=== PATIENT | male | born 1945 | race Hispanic/Latino ===

== ENCOUNTER → 2023-05-06 | Outpatient (CLI) | payer OTHER ==
[2023-05-06 11:11] LABS: CREATININE 1.1 mg/dL (0.5-1.5)
== END | disposition home or self-care (01) ==
LOC: LAB 10:13
PROVIDERS: ATTEND Student in an Organized Health Care Education/Training Program
DX: R10.9 Unspecified abdominal pain (principal)
CPT/HCPCS: 36415; 82565; 84520

== ENCOUNTER → 2023-05-19 | Outpatient (CLI) | payer OTHER ==
[~2023-05-19] MED LIST: IOHEXOL-350 75 ML VIAL IV ONE
== END | disposition home or self-care (01) ==
LOC: RAH 07:43
PROVIDERS: ATTEND Student in an Organized Health Care Education/Training Program
DX: K43.9 Ventral hernia without obstruction or gangrene (principal); R10.9 Unspecified abdominal pain; K57.30 Diverticulosis of large intestine without perforation or abscess without bleeding; K80.20 Calculus of gallbladder without cholecystitis without obstruction
CPT/HCPCS: 74177; Q9967

== ENCOUNTER 2024-10-07 10:10 | Inpatient (IN) | payer OTHER ==
[~2024-10-07] VITALS: Ht 167.6 cm; Wt 82.7 kg
[2024-10-07 10:35] LABS: BASOPHILS # (AUTO) 0.06 K/uL (0.00-0.20); BASOPHILS % (AUTO) 0.5 % (0.0-5.0); EOSINOPHILS # (AUTO) 0.11 K/uL (0.00-0.70); EOSINOPHILS % (AUTO) 0.9 % (0.0-8.0); IMMATURE GRANULOCYTE ABSOLUTE 0.05 K/uL (0-1); LYMPHOCYTES # (AUTO) 2.2 K/uL (1.0-4.8); LYMPHOCYTES % (AUTO) 17.1 % (21.0-51.0); MEAN CORPUSCULAR HEMOGLOBIN 31.5 pg (27.0-33.0); MEAN CORPUSCULAR HGB CONC 33.3 g/dL (32.0-36.0); MEAN CORPUSCULAR VOLUME 94.4 fL (79-99); MONOCYTES # (AUTO) 0.6 K/uL (0.1-1.0); MONOCYTES % (AUTO) 4.7 % (3.0-13.0); NEUTROPHILS # (AUTO) 9.8 K/uL (1.8-7.7); NEUTROPHILS % (AUTO) 76.4 % (40.0-77.0); PLATELET COUNT (AUTO) 185 K/uL (130-400); RED BLOOD CELL COUNT(AUTO) 4.45 MIL/uL (4.50-6.20); RED CELL DISTRIBUTION WIDTH 13.7 % (11.0-15.5); WHITE BLOOD COUNT (AUTO) 12.9 K/uL (4.8-10.8)
[2024-10-07 10:48] LABS: CREATININE 1.4 mg/dL (0.5-1.3); POTASSIUM 5.1 mmol/L (3.5-5.1)
[2024-10-07] MEDS: morPHINE 4 MG SYG IVP ONE (11:43)
[2024-10-07] MEDS: ondanSETRON 4MG INJ IVP ONE (11:43)
[2024-10-07 11:49] LABS: APPEARANCE,URINE CLOUDY (CLEAR); BILIRUBIN,URINE NEGATIVE (NEGATIVE); COLOR,URINE LIGHT-YELLOW (YELLOW); GLUCOSE, URINE (UA) >=1000 mg/dL (NEGATIVE); KETONES,URINE NEGATIVE (NEGATIVE); LEUKOCYTE ESTERASE ,URINE 250 Leu/uL (NEGATIVE); NITRATE,URINE NEGATIVE (NEGATIVE); PH,URINE 5.5 (5.0-8.0); PROTEIN,URINE 70 mg/dL (NEGATIVE); UROBILINOGEN,URINE 0.2 mg/dL (0.2-1.0)
[2024-10-07 11:50] LABS: ADD UA MICROSCOPIC YES
[2024-10-07 12:02] LABS: BACTERIA,URINE MANY /HPF (None Seen); MUCUS,URINE RARE LPF (None Seen); SQUAMOUS EPITHELIAL CELL,UR RARE /HPF (0-2); WBC,URINE TNTC /HPF (0-1)
[2024-10-07] MEDS ORDERED: levoFLOXacin 500 MG/D5W 100 ML 100 ML IV SCH (12:30)
--- NOTE | 2024-10-07 12:41 | ERN ---
General Chief Complaint: Abdominal Pain Stated Complaint: ABD PAIN, VOMITING, DISTENDED HERNIA Time Seen by MD: 10:13 Source: patient History of Present Illness Initial Comments PATIENT IS A AN 78-YEAR-OLD MALE COMING IN TO BE EVALUATED FOR ABDOMINAL PAIN NAUSEOUSNESS AND VOMITING. PATIENT STATES THAT HE WAS NOT ABLE TO TOLERATING ORAL INTAKE. 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 HE WAS PENDING SURGICAL PROCEDURE AT THE MOMENT IT WAS POSTPONED WITH THE PATIENT'S WEIGHT. Allergies: Coded Allergies: Penicillins (Unverified Allergy, Unknown, 10/07/24) Past Medical History Past Medical History: Arrythmia, Coagulopathy Past Surgical History: Pacer/AICD ROS Dictation CONSTITUTIONAL: NO CHILLS, NO FEVER, NO WEAKNESS, NO DIAPHORESIS, NO MALAISE. HEAD/FACE: NO SIGNS OF TRAUMA. EENT: NO EYE PAIN, NO BLURRED VISION, NO TEARING, NO DOUBLE VISION, NO EAR PAIN, NO EAR DISCHARGE, NO NOSE PAIN, NO NASAL CONGESTION, NO THROAT PAIN, NO THROAT SWELLING, NO MOUTH PAIN. RESPIRATORY: NO COUGH, NO ORTHOPNEA, NO SOB, NO STRIDOR, NO WHEEZING. CARDIOVASCULAR: NO CHEST PAIN, NO EDEMA, NO PALPITATIONS, NO SYNCOPE. GASTROINTESTINAL/ABDOMINAL: ABDOMINAL PAIN, NO CONSTIPATION, NO DIARRHEA, NO NAUSEA, NO VOMITING. GENITOURINARY: NO ABNORMAL DISCHARGE, NO DYSURIA, NO FREQUENT URINATION, NO HEMATURIA. NO COMPLAINTS OF PAIN IN THE GENITALS. MUSCULOSKELETAL: NO BACK PAIN, NO GOUT, NO JOINT PAIN, NO JOINT SWELLING, NO MUSCLE PAIN, NO MUSCLE STIFFNESS, NO NECK PAIN. INTEGUMENTARY: NO CHANGE IN COLOR, NO CHANGE IN HAIR/NAILS, NO DRYNESS, NO LESION, NO LUMPS, NO RASH. NEUROLOGICAL/PSYCH: NO ANXIETY, NOT DEPRESSED, NO EMOTIONAL PROBLEM, NO HEADACHE, NO NUMBNESS, NO PRE-EXISTING DEFICIT, NO HISTORY OF SEIZURES, NO TREMORS, NO WEAKNESS. HEMATOLOGIC/LYMPHATIC: NOT ANEMIC, NO HISTORY OF BLOOD CLOTS, NO APPARENT BLEEDING, NO BRUISING, GLANDS NOT SWOLLEN. ALL SYSTEMS NEGATIVE, EXCEPT NOTED. Physical Exam Physical Exam Dictation VITAL SIGNS: REVIEWED. GENERAL APPEARANCE: ALERT, ORIENTED X3, NO ACUTE DISTRESS, OBESE. HEAD AND FACE: NON-TRAUMATIC. EYES: PERRL, PINK CONJUNCTIVAS, EYELID NO TRAUMA, ANTERIOR CHAMBER CLEAR. EARS: PINNAS INTACT AND NO SIGNS OF TRAUMA OR ERYTHEMA. EAR CANALS CLEAR AND NO DISCHARGE. TMS NO ERYTHEMA. NOSE: NO DISCHARGE, NO BLEEDING. OROPHARYNX: MOUTH NORMAL, TEETH NO CARIES, TONGUE PINK. PHARYNX CLEAR, NO ERYTHEMA. TONSILS NO EXUDATES, NO ABSCESSES NOTED. MUCOUS MEMBRANE MOIST. NECK: SUPPLE, NON-TENDER, NO THYROMEGALY, NO MASSES, NO JVD, NO BRUITS. BREAST: DEFERRED. CHEST: NO TENDERNESS, NO CREPITUS, NO PARADOXICAL MOVEMENT, NO RETRACTIONS. LUNGS: CLEAR, WELL-VENTILATED, SYMMETRIC, NO RALES, NO WHEEZING, NO RHONCHI, NO STRIDOR, GOOD BREATH SOUNDS BILATERALLY. HEART: REGULAR RATE, REGULAR RHYTHM, NO MURMUR, NO GALLOPS. VASCULAR: NO PERIPHERAL EDEMA. ABDOMEN: SOFT, POSITIVE BOWEL SOUNDS, DISTENDED, VENTRAL HERNIA, NO GUARDING, TENDER, NO REBOUND, NO MASSES NO HEPATOMEGALY, NO SPLENOMEGALY, NO NESS'S SIGN, NO HERNIAS. RECTAL: DEFERRED. GENITAL: DEFERRED. NEUROLOGICAL: NORMAL SPEECH, GROSS MOTOR FUNCTION INTACT, GROSS SENSORY FUNCTION INTACT. MUSCULOSKELETAL: NECK NONTENDER, FULL RANGE OF MOTION, BACK NONTENDER, FULL RANGE OF MOTION. EXTREMITIES: NONTENDER, FULL RANGE OF MOTION. SKIN: COLOR PINK, DRY, NO TURGOR, NO RASH, NO LACERATIONS, NO ABRASIONS, NO CONTUSIONS. LYMPHATICS: DEFERRED. Results Laboratory and Microbiology Lab and Micro Result Laboratory Tests Test 10/07/24 10:24 10/07/24 11:17 White Blood Count 12.9 K/uL (4.8-10.8) H Red Blood Count 4.45 MIL/uL (4.50-6.20) L Hemoglobin 14.0 g/dL (14.0-18.0) Hematocrit 42.0 % (42-54) Mean Corpuscular Volume 94.4 fL (79-99) Mean Corpuscular Hemoglobin 31.5 pg (27.0-33.0) Mean Corpuscular Hemoglobin Concent 33.3 g/dL (32.0-36.0) Red Cell Distribution Width 13.7 % (11.0-15.5) Platelet Count 185 K/uL (130-400) Mean Platelet Volume 10.3 fL (7.5-10.5) Immature Granulocyte % (Auto) 0.4 % (0-1) Neutrophils (%) (Auto) 76.4 % (40.0-77.0) Lymphocytes (%) (Auto) 17.1 % (21.0-51.0) L Monocytes (%) (Auto) 4.7 % (3.0-13.0) Eosinophils (%) (Auto) 0.9 % (0.0-8.0) Basophils (%) (Auto) 0.5 % (0.0-5.0) Neutrophils # (Auto) 9.8 K/uL (1.8-7.7) H Lymphocytes # (Auto) 2.2 K/uL (1.0-4.8) Monocytes # (Auto) 0.6 K/uL (0.1-1.0) Eosinophils # (Auto) 0.11 K/uL (0.00-0.70) Basophils # (Auto) 0.06 K/uL (0.00-0.20) Absolute Immature Granulocyte (auto 0.05 K/uL (0-1) Nucleated Red Blood Cells 0.0 % (0.0-0.19) Sodium Level 130 mmol/L (136-145) L Potassium Level 5.1 mmol/L (3.5-5.1) Chloride Level 100 mmol/L (101-111) L Carbon Dioxide Level 22 mmol/L (21-32) Blood Urea Nitrogen 33 mg/dL (7-18) H Creatinine 1.4 mg/dL (0.5-1.3) H Glomerular Filtration Rate Calc 51 mL/min (>90) Random Glucose 337 mg/dL (70-105) H Total Calcium 10.5 mg/dL (8.5-10.1) H Urine Color LIGHT-YELLOW (YELLOW) Urine Appearance CLOUDY (CLEAR) H Urine pH 5.5 (5.0-8.0) Urine Specific [place] 1.017 (1.001-1.031) Urine Protein 70 mg/dL (NEGATIVE) H Urine Glucose (UA) >=1000 mg/dL (NEGATIVE) H Urine Ketones NEGATIVE mg/dL (NEGATIVE) Urine Occult Blood +- (TRACE) (NEGATIVE) H Urine Nitrate NEGATIVE (NEGATIVE) Urine Bilirubin NEGATIVE mg/dL (NEGATIVE) Urine Urobilinogen 0.2 mg/dL (0.2-1.0) Urine Leukocyte Esterase 250 Lacy/uL (NEGATIVE) H Urine RBC 6-10 /HPF (0-1) H Urine WBC TNTC /HPF (0-1) H Urine Squamous Epithelial Cells RARE /HPF (0-2) Urine Bacteria MANY /HPF (None Seen) Labs Reviewed?: Yes EKG/XRAY/US/CT/MRI EKG Comment 10/07/2024 time 10:22 a.m. Ventricular rate [address] wave elevation or depression [place] 206 CT Scan Comment [address] [place] [address] IMAGING REPORT Signed PATIENT: RAISSA NAVA MR#: [id number] : 1945 SEX: M AGE: 78 LOCATION: [facility] ORDER [id number] STATUS: REG REPORT#: [id number] SERVICE [id number] REASON: HERNIA ORDERING PHYSICIAN: MARLYS CHRISTOPHER MD PROCEDURE: ABD PEL W - CT ABDOMEN/PELVIS W/CONTRAST CT ABDOMEN/PELVIS W/CONTRAST HISTORY: Hernia COMPARISON: None TECHNIQUE: Multiple sequential axial images of the abdomen and pelvis were obtained from the dome of the diaphragm through symphysis pubis. Patient was not given contrast through intravenous route. Oral contrast was not given. FINDINGS: No pleural effusion is seen bilaterally. There is no evidence of parenchymal disease or pulmonary nodule of the visualized lower lungs. Degenerative changes of the thoracolumbar spine are present. The heart is not enlarged. Gallstones are seen in the gallbladder. There is small bowel dilatation with air fluid level with transitional point at the level of the ventral hernia with bowel content suspicious for bowel obstruction. There is diverticulosis. The liver, spleen, adrenal glands and pancreas are unremarkable. There is no evidence of hydronephrosis bilaterally. No evidence of renal stone is seen. There are bilateral renal cortical scarring. Fecal material is seen in the colon. There are normal size retroperitoneal and mesenteric lymph nodes. No ascites is seen. No CT evidence of acute appendicitis is seen. Pelvic sidewalls are symmetric bilaterally. Bladder is well distended without wall thickening. IMPRESSION: 1. Gallstones are seen in the gallbladder. There is small bowel dilatation with air fluid level with transitional point at the level of the ventral hernia with bowel content suspicious for bowel obstruction. There is diverticulosis. CT was performed with one or more following dose reduction techniques: automated exposure control, adjustment of the mA and kv according to patient's size, or use of a iterative reconstruction technique. DICTATED BY: FIFI BERNABE MD DATE: 10/07/241405 ELECTRONICALLY SIGNED BY: FIFI BERNABE MD DATE: 10/07/[address] [facility] MDM: DIFFERENTIAL DIAGNOSIS: VENTRAL HERNIA, ABDOMINAL HERNIA, SMALL-BOWEL OBSTRUCTION, RATIONALE: TESTS CONSIDERED AND ORDERED SECONDARY TO SHARED DECISION MAKING INCLUDE: PREVIOUS OUTSIDE RECORDS REVIEWED: OLD ER VISITS. RISK OF COMPLICATION AND/OR MORBIDITY OR MORTALITY OF PATIENT MANAGEMENT: NONE MEDICATIONS-PER MEDICATION RECONCILIATION NEED FOR HOSPITALIZATION: PATIENT DOES MEET CRITERIA FOR HOSPITALIZATION. NEED FOR EMERGENCY MAJOR/MINOR SURGERY: YES THERE ARE NO SOCIAL CONCERNS WITH THIS PATIENT. PRESCRIPTION DRUG MANAGEMENT PRESCRIPTIONS WILL INCLUDE SYMPTOMATIC CARE PATIENT'S PRIOR EXTERNAL MEDICAL RECORDS FROM OTHER ER VISITS WERE REVIEWED BY ME INDICATED. PRIOR TESTING AND RESULTS FROM PREVIOUS VISITS WERE REVIEWED. PRIOR TESTS WERE TAKEN INTO ACCOUNT WITH MEDICAL DECISION MAKING AND RESOURCE UTILIZATION, INDEPENDENT HISTORIAN/HISTORIANS WERE USED TO OBTAIN COMPLETE MEDICAL HISTORY. I INDEPENDENTLY INTERPRETED THE TEST THAT WERE PERFORMED, RESULTS WERE REVIEWED BY ME AND CONSIDERED FINDINGS ON RADIOLOGY IF ORDERED. MEDICAL MANAGEMENT AND EXAMINATION INTERPRETATION DISCUSSIONS WERE HAD BY ME WITH OTHER QUALIFIED HEALTHCARE PROFESSIONALS INDICATED FOR THE PATIENT'S CARE. PATIENT WILL BE ADMITTED UNDER THE CARE OF HOSPITALIST GROUP FOR ONGOING MANAGEMENT. SURGEON DR. DE LA ROSA CONSULTED. ED Course Orders Procedure Category Date Status Time Cbc With Differential LAB 10/07/24 Complete 10:21 Basic Metabolic Panel LAB 10/07/24 Complete 10:21 Urinalysis Profile LAB 10/07/24 Complete 10:21 Morphine 4mg Syg PHA 10/07/24 Complete (Morphine 4mg Syg) 11:30 Ondansetron 4mg Inj PHA 10/07/24 Complete (Zofran 4mg Inj) 11:30 Culture Urine DEMETRIA 10/07/24 In Process 11:51 Levofloxacin 500 PHA 10/07/24 Complete Mg/D5w 100 Ml 12:30 Levofloxacin 500 PHA 10/07/24 Complete Mg/D5w 100 Ml 12:30 Levofloxacin 250 PHA 10/08/24 In Process Mg/D5w 50ml (Levaquin 12:30 Ct Abdomen/Pelvis CT 10/07/24 Resulted W/Contrast 12:38 Iohexol (Omnipaque) PHA 10/07/24 Complete 13:37 Current Medications Medications (Trade) Dose Ordered Sig/Riaz Route PRN Reason Start Time Stop Time Status Last Admin Dose Admin Iohexol (Omnipaque) 75 ml STK-MED ONCE IV 10/07/24 13:37 10/07/24 13:37 DC Levofloxacin/ Dextrose 50 ml @ 50 mls/hr Q24H IVPB 10/08/24 12:30 10/18/24 12:29 Levofloxacin/ Dextrose 100 ml @ 100 mls/hr ONCE ONCE IV 10/07/24 12:30 10/07/24 13:29 DC 10/07/24 14:04 Levofloxacin/ Dextrose 100 ml @ 100 mls/hr Q24H IV 10/07/24 12:30 10/07/24 12:24 DC Morphine Sulfate (morPHINE 4MG SYG) 4 mg ONCE ONCE IVP 10/07/24 11:30 10/07/24 11:32 DC 10/07/24 11:43 Ondansetron HCl (zoFRAN 4MG INJ) 4 mg ONCE ONCE IVP 10/07/24 11:30 10/07/24 11:32 DC 10/07/24 11:43 Vital Signs Date Time Temp Pulse Resp B/P (MAP) Pulse Ox O2 Delivery O2 Flow Rate FiO2 10/07/24 14:17 97.9 67 16 146/54 98 Room Air* 0 21 10/07/24 11:56 97.9 65 16 176/74 95 Room Air* 0 21 10/07/24 10:13 97.9 95 16 184/99 Room Air 0 10/07/24 10:13 97.9 95 16 184/99 96 Room Air* 0 21 Procedure Dictation VENTRAL HERNIA REDUCTION- IN THE TRENDELENBURG POSITION AFTER ICING THE HERNIA, VENTRAL HERNIA WAS GENTLY REDUCED PATIENT TOLERATED PROCEDURE WELL. POST REDUCTION PATIENT STATES HIS PAIN IMPROVED. DX & DISP Disposition: Inpatient Decision to Admit Time: 14:56 Departure Impression: Primary Impression: Abdominal hernia Additional Impression: Small bowel obstruction Condition: Stable Referrals: WINNIE VIRK (PCP) MARLYS CHRISTOPHER MD October 07, 2024 12:41
--- NOTE | 2024-10-07 13:00 | NUR ---
ABDOMINAL HERNIA REDUCED BY DR CHRISTOPHER.ABDOMINAL HERNIA APPLIED. PT FEELS RELIEVED.
[2024-10-07] MEDS ORDERED: IOHEXOL-350 75 ML VIAL IV ONE (13:37)
[2024-10-07] MEDS: levoFLOXacin 500 MG/D5W 100 ML 100 ML IV ONE (14:04)
--- NOTE | 2024-10-07 14:10 | HMCIMG ---
CT ABDOMEN/PELVIS W/CONTRAST HISTORY: Hernia COMPARISON: None TECHNIQUE: Multiple sequential axial images of the abdomen and pelvis were obtained from the dome of the diaphragm through symphysis pubis. Patient was not given contrast through intravenous route. Oral contrast was not given. FINDINGS: No pleural effusion is seen bilaterally. There is no evidence of parenchymal disease or pulmonary nodule of the visualized lower lungs. Degenerative changes of the thoracolumbar spine are present. The heart is not enlarged. Gallstones are seen in the gallbladder. There is small bowel dilatation with air fluid level with transitional point at the level of the ventral hernia with bowel content suspicious for bowel obstruction. There is diverticulosis. The liver, spleen, adrenal glands and pancreas are unremarkable. There is no evidence of hydronephrosis bilaterally. No evidence of renal stone is seen. There are bilateral renal cortical scarring. Fecal material is seen in the colon. There are normal size retroperitoneal and mesenteric lymph nodes. No ascites is seen. No CT evidence of acute appendicitis is seen. Pelvic sidewalls are symmetric bilaterally. Bladder is well distended without wall thickening. IMPRESSION: 1. Gallstones are seen in the gallbladder. There is small bowel dilatation with air fluid level with transitional point at the level of the ventral hernia with bowel content suspicious for bowel obstruction. There is diverticulosis. CT was performed with one or more following dose reduction techniques: automated exposure control, adjustment of the mA and kv according to patient's size, or use of a iterative reconstruction technique.
[2024-10-07] MEDS ORDERED: DEXTROSE 50%-WATER 50 ML DISP.SYRIN IV PRN (15:30)
[2024-10-07] MEDS ORDERED: GLUCAGON 1MG KIT 1 MG ML IM PRN (15:30)
[2024-10-07] MEDS ORDERED: morPHINE 2 MG SYG IVP PRN (15:30)
[2024-10-07] MEDS ORDERED: IpraTROPium 0.5 MG/2.5 ML INH IH PRN (15:30)
--- NOTE | 2024-10-07 15:44 | CONS ---
CONSULT NOTE: CARDIOLOGY Reason for consult: Atrial fibrillation HPI/story at presentation: This is a pleasant 78-year-old male with past medical history as per presents for abdominal pain, he has a known history of ventral hernia that started having more pain recently, he came to the ER for further evaluation management. Possible incarceration being evaluated. No history of atrial fibrillation on anticoagulation with Coumadin Subjective: 10/2024 abdominal pain Past medical history: See below Allergies, Meds See chart Review of systems Review of Systems Constitutional: Negative for chills and fever. HENT: Negative for ear discharge and ear pain. Eyes: Negative for photophobia and discharge. Respiratory: Negative for cough, sputum production and stridor. Cardiovascular: Negative for chest pain and palpitations. Gastrointestinal: Negative for diarrhea and vomiting. Genitourinary: Negative for frequency. Musculoskeletal: Negative for myalgias. Skin: Negative for rash. Neurological: Negative for focal weakness and seizures. Endo/Heme/Allergies: Negative for polydipsia. Psychiatric/Behavioral: Negative for hallucinations. Vitals see chart PHYSICAL EXAMINATION GENERAL: The patient is alert and oriented*3 HEENT: Nonicteric sclerae, non traumatic HEART: Regular rate and rhythm with no murmurs LUNGS: Clear to auscultation bilaterally ABDOMEN: DEFERRED, 10/2024 GENITAL, RECTAL: deferred SKIN: No rash NEUROLOGIC: NFND EXTREMITIES: No edema ASSESSMENT ATRIAL FIBRILLATION On anticoagulation with Coumadin, rate controlled with carvedilol at baseline Normal EF echocardiogram, 2021 BRADYCARDIA Status post pacemaker implantation CHRONIC ABDOMINAL VENTRAL HERNIA Presented with pain at the hernia site, incarceration Associated urinary tract infection Elevated white count at presentation ELEVATED INR At presentation Coumadin held at presentation INR of 2.6 at presentation ACUTE KIDNEY INJURY At presentation Creatinine 1.4 at presentation HISTORY OF GI BLEEDING History of rectal bleeding, 2021 HYPERTENSION, DIABETES, HYPERLIPIDEMIA CORE MEASURES Pending OTHER MEDICAL PROBLEMS Diverticulosis COVID-19 Anemia PLAN 10/07/2024 INR is therapeutic, would continue to hold Coumadin until any surgical plan is complete. Rates are currently, well-controlled and patient was taking high doses of carvedilol at home, currently on as needed metoprolol to help. Remains NPO. Echocardiogram has been ordered and is pending. ATTESTATION I was involved substantially in the care of this patient Number and complexity of problems addressed: 1 acute illness with systemic features Amount and or complexity of data Review of prior external note(s) from each unique source: 2+ Ordering of each unique test : 0 Review of the result(s) of each unique test: 2+ Assessment requiring an independent historian(s): No Independent interpretation of test performed by another MD/QHCP/appropriate source (not separately reported) : No Discussion of management or test interpretation with external MD/QHCP/appropriate source (not separately reported) : No Risk status (cardiac, billing related): Moderate UZMA LANE MD October 07, 2024 15:44
[2024-10-07 15:54] LABS: INR 2.6 (0.85-1.15); PROTHROMBIN TIME 25.1 SEC (9.6-11.6)
[2024-10-07 15:55] LABS: PARTIAL THROMBOPLASTIN TIME 40.3 SEC (26.3-35.5)
[2024-10-07 15:56] LABS: ALBUMIN 3.1 g/dL (3.5-5.0); BILIRUBIN,DIRECT 0.2 mg/dL (0.0-0.3); BILIRUBIN,TOTAL 0.9 mg/dL (0.2-1.0); MAGNESIUM 1.1 mg/dL (1.80-2.40); TOTAL PROTEIN, SERUM 7.2 g/dL (6.0-8.3)
[2024-10-07] MEDS ORDERED: HYDR25TA PO (16:09)
[2024-10-07] MEDS ORDERED: FERR324T PO (16:09)
[2024-10-07] MEDS ORDERED: ATOR40TA69 PO (16:09)
[2024-10-07] MEDS ORDERED: CETI10TA87 PO (16:09)
[2024-10-07] MEDS ORDERED: WARF-67 PO (16:09)
[2024-10-07] MEDS ORDERED: ERGO500093 PO (16:09)
[2024-10-07] MEDS ORDERED: TAMS-55 PO (16:12)
[2024-10-07] MEDS ORDERED: DUTA0.5C37 PO (16:12)
[2024-10-07] MEDS ORDERED: PANT40TA54 PO (16:12)
--- NOTE | 2024-10-07 16:13 | NUR ---
MEDICATIONS RECONCILED
[2024-10-07] MEDS: 0.9%NACL 1000ML 1,000 ML IV SCH (16:22)
[2024-10-07] MEDS: PANTOPrazole 40 MG/VIAL IVP SCH (16:22)
[2024-10-07] MEDS: INSULIN humuLIN R 100 UNIT/ML 3ML SQ SCH (16:50)
[2024-10-07] MEDS ORDERED: hydrALAZine 20MG/ML VIAL IV PRN (18:00)
[2024-10-07] MEDS ORDERED: metoPROLOL tartRATE 1 MG/ML 5ML VIAL IV PRN (18:00)
--- NOTE | 2024-10-07 18:42 | HP ---
[facility] HISTORY AND PHYSICAL Date of Service: October 07, 2024 Time of Service: 18:30 HISTORY OF PRESENT ILLNESS: Date of service: 10/07/2024, patient was seen in ER room 14 78-year-old male with underlying history of atrial fibrillation maintained on chronic anticoagulation with Eliquis, history of pacemaker placement, hypertension, type 2 diabetes mellitus, hyperlipidemia, history of chronic abdominal ventral hernia being followed by Dr. Small with General surgery as outpatient who presented to the ER for further evaluation of significant pain involving the hernia site. Symptoms have been ongoing since last night and has progressively worsened. Pain this morning was 10/10 in severity. Symptoms were accompanied by nausea, vomiting and poor oral intake. Last bowel movement was yesterday morning. Patient last saw Dr. Small about six months ago. Patient reports that he has had issues with abdominal hernia for about two years now and has been treated conservatively. Patient does report having cardiac comorbidities and is followed by Dr. Man with Cardiology as outpatient. Patient has a history of pacemaker placement. Patient reports having history of atrial fibrillation and is maintained on warfarin for anticoagulation. Last dose of anticoagulation with warfarin was about two days ago. On presentation to the hospital, [place] [address], hemoglobin of 14.0, platelet count of [id number]. BMP remarkable for sodium 130, potassium 5.1, BUN of 33, creatinine 1.4, calcium of 10.5, magnesium 1.1. Ventral abdominal hernia was reduced in Trendelenburg position and abdominal binder was applied by ER physician. Patient underwent CT abdomen pelvis with IV contrast which showed findings of small bowel dilation with transition point in the ventral hernia concerning for mechanical small-bowel obstruction. Patient does report that abdominal pain has resolved after undergoing reduction of the hernia at bedside. Denies any nausea or vomiting. We will keep this patient strictly NPO. We will hold off on NG tube placement for now given elevated INR to reduce the risk of any significant bleeding with NG tube insertion. Coumadin will be placed on hold. Patient's case was already discussed with Dr. Glover with General surgery, patient will receive IV fluids and IV antibiotic therapy. Consultation with Cardiology will be requested. We will see how patient progresses in the next 48-72 hours. REVIEW OF SYSTEMS CONSTITUTIONAL: Denies fevers, chills, or night sweats. No unintentional weight loss reported. NEUROLOGICAL: Denies headache, amaurosis fugax, motor weakness, sensory deficit, vertigo/spinning sensation, gait abnormalities, or tremors. ENT: No hearing loss, otalgia, otorrhea, rhinitis, rhinorrhea, hoarseness, or sore throat. CARDIOVASCULAR: Denies any exertional angina, dyspnea on exertion, orthopnea, paroxysmal nocturnal dyspnea, palpitations, life-threatening arrhythmias, claudication. PULMONARY: Denies any shortness of breath, cough, phlegm/sputum, hemoptysis, pleuritic chest pain. SLEEP: Denies morning headaches, daytime somnolence or napping. Denies difficulty falling asleep, staying asleep, waking from sleep. Denies knowledge of snoring. GASTROINTESTINAL: Patient reports having nausea, vomiting and abdominal pain which was severe in intensity this morning GENITOURINARY: Denies frequency, urgency, nocturia, hematuria or incontinence (Storage/Irritative symptoms.) Low urinary stream, straining to void, urinary intermittency or hesitancy, splitting of the voiding stream, terminal dribbling. ENDOCRINOLOGIC: Denies polyuria, polydipsia, polyphagia or heat/cold intolerances. HEMATOLOGIC: Denies thrombophilia/previous clots, or coagulopathy/bleeding disorders. ONCOLOGIC: Denies personal history of malignancy. DERMATOLOGIC: Denies rashes or pruritus. PSYCHIATRIC: Denies any suicidal or homicidal ideation. Denies hallucinations. PAST MEDICAL HISTORY: Hypertension, history of atrial fibrillation maintained on chronic anticoagulation with warfarin, history of BPH, history of chronic abdominal hernia for about two years PAST SURGICAL HISTORY: Pacemaker placement about 2-3 years ago PAST SOCIAL HISTORY: Denies active smoking or alcohol consumption FAMILY HISTORY: Denies pertinent family history Allergies: Patient has allergic reaction to penicillin Home medications: Lipitor 40 mg daily, cetirizine 10 mg daily, dutasteride 0.5 mg daily, ferrous gluconate 324 mg twice daily, HCTZ 25 mg daily, Protonix 40 mg b.i.d., Flomax 0.4 mg daily, warfarin 2 mg daily Coded Allergies: Penicillins (Unverified Allergy, Unknown, 10/07/24) PHYSICAL EXAM GENERAL APPEARANCE: The patient is awake, alert, and oriented, in no acute cardiopulmonary distress. NEUROLOGICAL: Cranial nerves II-XII grossly intact. Motor is 5/5 in bilateral upper and lower extremities proximal to distal. No sensory deficits. HEENT: Face is symmetric. Pupils are equal and reactive. Extraocular movements are intact. NECK: Supple. No JVD. No thyromegaly. No submental, submandibular, pre- /postauricular, occipital or supraclavicular lymphadenopathy. CHEST: Normal chest expansion. No Telemetry. LUNGS: Absence of any rales, rhonchi or any wheezing. CARDIOVASCULAR: Regular. S1 and S2 normal. No appreciable rubs, murmurs or gallops. ABDOMEN: Soft, nontender, and nondistended. There is no rebound, voluntary guarding, or rigidity. : Deferred. No Echevarria. EXTREMITIES: Non-edematous and not cyanotic. No clubbing. Good capillary refill. SKIN: No skin breakdown. Vital Sign (Last 24 Hours) 10/07/24 16:00 Temp 97.7 Pulse 60 Resp 16 B/P (MAP) 139/66 Pulse Ox 98 O2 Delivery Room Air* O2 Flow Rate 0 FiO2 21 LABS: Laboratory: Test 10/07/24 16:40 10/07/24 15:35 10/07/24 11:17 10/07/24 10:24 Range/Units Whole Blood Glucose 271 H 70-110 MG/DL Erythrocyte Sedimentation Rate 39 H 0-20 MM/HR Prothrombin Time 25.1 H 9.6-11.6 SEC Prothromb Time International Ratio 2.60 H 0.85-1.15 Activated Partial Thromboplast Time 40.3 H 26.3-35.5 SEC Magnesium Level 1.10 L 1.80-2.40 mg/dL Total Bilirubin 0.9 0.2-1.0 mg/dL Direct Bilirubin 0.2 0.0-0.3 mg/dL Aspartate Amino Transf (AST/SGOT) 19 10-37 U/L Alanine Aminotransferase (ALT/SGPT) 16 12-78 U/L Alkaline Phosphatase 93 50-136 U/L Lactate Dehydrogenase 163 81-234 U/L C-Reactive Protein, Quantitative 8.70 H 0.5-3.0 mg/L Total Protein 7.2 6.0-8.3 g/dL Albumin 3.1 L 3.5-5.0 g/dL Procalcitonin < 0.05 L 0.05-0.5 ng/mL Urine Color LIGHT-YELLOW YELLOW Urine Appearance CLOUDY H CLEAR Urine pH 5.5 5.0-8.0 Urine Specific [place] 1.017 1.001-1.031 Urine Protein 70 H NEGATIVE mg/dL Urine Glucose (UA) >=1000 H NEGATIVE mg/dL Urine Ketones NEGATIVE NEGATIVE mg/dL Urine Occult Blood +- (TRACE) H NEGATIVE Urine Nitrate NEGATIVE NEGATIVE Urine Bilirubin NEGATIVE NEGATIVE mg/dL Urine Urobilinogen 0.2 0.2-1.0 mg/dL Urine Leukocyte Esterase 250 H NEGATIVE Lacy/uL Urine RBC 6-10 H 0-1 /HPF Urine WBC TNTC H 0-1 /HPF Urine Squamous Epithelial Cells RARE 0-2 /HPF Urine Bacteria MANY None Seen /HPF White Blood Count 12.9 H 4.8-10.8 K/uL Red Blood Count 4.45 L 4.50-6.20 MIL/uL Hemoglobin 14.0 14.0-18.0 g/dL Hematocrit 42.0 42-54 % Mean Corpuscular Volume 94.4 79-99 fL Mean Corpuscular Hemoglobin 31.5 27.0-33.0 pg Mean Corpuscular Hemoglobin Concent 33.3 32.0-36.0 g/dL Red Cell Distribution Width 13.7 11.0-15.5 % Platelet Count 185 130-400 K/uL Mean Platelet Volume 10.3 7.5-10.5 fL Immature Granulocyte % (Auto) 0.4 0-1 % Neutrophils (%) (Auto) 76.4 40.0-77.0 % Lymphocytes (%) (Auto) 17.1 L 21.0-51.0 % Monocytes (%) (Auto) 4.7 3.0-13.0 % Eosinophils (%) (Auto) 0.9 0.0-8.0 % Basophils (%) (Auto) 0.5 0.0-5.0 % Neutrophils # (Auto) 9.8 H 1.8-7.7 K/uL Lymphocytes # (Auto) 2.2 1.0-4.8 K/uL Monocytes # (Auto) 0.6 0.1-1.0 K/uL Eosinophils # (Auto) 0.11 0.00-0.70 K/uL Basophils # (Auto) 0.06 0.00-0.20 K/uL Absolute Immature Granulocyte (auto 0.05 0-1 K/uL Nucleated Red Blood Cells 0.0 0.0-0.19 % Sodium Level 130 L 136-145 mmol/L Potassium Level 5.1 3.5-5.1 mmol/L Chloride Level 100 L 101-111 mmol/L Carbon Dioxide Level 22 21-32 mmol/L Blood Urea Nitrogen 33 H 7-18 mg/dL Creatinine 1.4 H 0.5-1.3 mg/dL Glomerular Filtration Rate Calc 51 >90 mL/min Random Glucose 337 H 70-105 mg/dL Total Calcium 10.5 H 8.5-10.1 mg/dL Current Medications Medications (Trade) Dose Ordered Sig/Riaz Route PRN Reason Start Time Stop Time Status Last Admin Dose Admin Acetaminophen (TYLenol 325MG TAB) 650 mg Q6H PRN PO MILD PAIN (1-3) 10/07/24 15:30 11/06/24 15:29 Dextrose (D50w) 50 ml AD PRN IV HYPOGLYCEMIA PROTOCOL 10/07/24 15:30 11/06/24 15:29 Enoxaparin Sodium (Lovenox) 30 mg DAILY SQ 10/08/24 09:00 11/07/24 08:59 Glucagon (Glucagon 1mg Kit) 1 mg AD PRN IM HYPOGLYCEMIA PROTOCOL 10/07/24 15:30 11/06/24 15:29 Hydralazine HCl (APRESOLine 20MG INJ) 5 mg Q6H PRN IV ADMINISTER FOR SBP > 160 10/07/24 18:00 11/06/24 17:59 Insulin Human Regular (humuLIN R 100 UNIT/ML 3ML) INSULIN SLIDING SCAL... ACHS SQ 10/07/24 16:30 11/06/24 16:29 10/07/24 16:50 5 UNIT Ipratropium [place] (AtrovENT UD) 0.5 mg [id number] PRN IH wheezing/ SOB 10/07/24 15:30 11/06/24 15:29 Levofloxacin/ Dextrose 50 ml @ 50 mls/hr Q24H IVPB 10/08/24 12:30 10/07/24 15:19 DC Levofloxacin/ Dextrose 100 ml @ 100 mls/hr Q24H IV 10/07/24 12:30 10/07/24 12:24 DC Magnesium Sulfate 50 ml @ 0 mls/hr PROTOCOL IV 10/07/24 16:30 11/06/24 16:29 Metoprolol Tartrate (loprESSOR) 5 mg Q6H PRN IV for a fib HR> 110 10/07/24 18:00 11/06/24 17:59 Morphine Sulfate (morPHINE 2MG SYG) 2 mg Q4H PRN IVP SEVERE PAIN (7-10) 10/07/24 15:30 10/14/24 15:29 Pantoprazole Sodium (PROTonix 40MG INJ) 40 mg Q24H IVP 10/07/24 15:30 11/06/24 15:29 10/07/24 16:22 40 MG Sodium Chloride 1,000 ml @ 80 mls/hr [id number] IV 10/07/24 15:30 11/06/24 15:29 10/07/24 16:22 80 MLS/HR DIAGNOSTICS / RADIOLOGY: SERVICE 1238 REASON: HERNIA ORDERING PHYSICIAN: MARLYS CHRISTOPHER MD PROCEDURE: ABD PEL W - CT ABDOMEN/PELVIS W/CONTRAST CT ABDOMEN/PELVIS W/CONTRAST HISTORY: Hernia COMPARISON: None TECHNIQUE: Multiple sequential axial images of the abdomen and pelvis were obtained from the dome of the diaphragm through symphysis pubis. Patient was not given contrast through intravenous route. Oral contrast was not given. FINDINGS: No pleural effusion is seen bilaterally. There is no evidence of parenchymal disease or pulmonary nodule of the visualized lower lungs. Degenerative changes of the thoracolumbar spine are present. The heart is not enlarged. Gallstones are seen in the gallbladder. There is small bowel dilatation with air fluid level with transitional point at the level of the ventral hernia with bowel content suspicious for bowel obstruction. There is diverticulosis. The liver, spleen, adrenal glands and pancreas are unremarkable. There is no evidence of hydronephrosis bilaterally. No evidence of renal stone is seen. There are bilateral renal cortical scarring. Fecal material is seen in the colon. There are normal size retroperitoneal and mesenteric lymph nodes. No ascites is seen. No CT evidence of acute appendicitis is seen. Pelvic sidewalls are symmetric bilaterally. Bladder is well distended without wall thickening. IMPRESSION: 1. Gallstones are seen in the gallbladder. There is small bowel dilatation with air fluid level with transitional point at the level of the ventral hernia with bowel content suspicious for bowel obstruction. There is diverticulosis. CT was performed with one or more following dose reduction techniques: automated exposure control, adjustment of the mA and kv according to patient's size, or use of a iterative reconstruction technique. DICTATED BY: FIFI BERNABE MD DATE: 10/07/24 1406 ELECTRONICALLY SIGNED BY: FIFI BERNABE MD DATE: 10/07/24 1410 ASSESSMENT: Incarcerated ventral abdominal hernia with acute small bowel obstruction, POA Urinary tract infection, POA Acute kidney injury, POA Coagulopathy with elevated PT INR, 2/2 warfarin use as outpatient, POA Mild hypercalcemia, POA Uncontrolled hyperglycemia, POA Severe hypomagnesemia, POA Leukocytosis, POA History of chronic abdominal hernia for the past two years, POA History of atrial fibrillation maintained on chronic anticoagulation with warfarin, POA History of pacemaker placement, POA Underlying history of type 2 diabetes mellitus, POA History of penicillin allergy, POA PLAN: Patient will be admitted to cardiac telemetry floor Patient will be kept strictly NPO We will start IV hydration with NS at 80 mL/hour Antibiotics with IV levofloxacin for management of UTI, patient recently reports having being treated for UTI as outpatient with Bactrim Patient will be placed on sliding scale insulin a.c. and HS for management of hyperglycemia Given underlying coagulopathy with use of warfarin as outpatient, we will hold off on NG tube placement for now to reduce risk of bleeding, we will hold anticoagulation, patient currently on bedside examination denies any significant nausea or significant abdominal pain Consultation will be requested with General surgery, appreciate recommendations We will have Cardiology follow this patient, we will keep p.r.n. IV metoprolol for heart rate greater than 110 or in case of atrial fibrillation with RVR Electrolytes will be repleted per protocol especially magnesium which is significantly low All labs will be repeated in the morning If calcium is persistently high tomorrow on repeat labs, we can consider additional workup including checking PTH and vitamin D levels Prognosis: Guarded Date of service: 10/07/2024, Plan of care was discussed with patient at bedside, Manjeet Schmitt MD Advanced Care Planning: Which of the following were discussed: Hospice care: Yes __ No _X_ Therapeutic options: Yes _X_ No __ Advance directives: Yes _X_ No __ Other discussions: Discussed with who?: Patient Voluntary nature of this service was explained to the patient? Yes _x_ No __ Amount of time spent:20 minutes MANJEET SCHMITT MD October 07, 2024 18:42
[2024-10-07 18:51] VITALS: PULSE 65; RESP 18; O2SAT 97
[2024-10-07] MEDS ORDERED: levoFLOXacin 500 MG/D5W 100 ML 100 ML IV ONE (19:00)
[2024-10-07] MEDS: MAGNESIUM 2GM PREMIX 50ML 50 ML IV SCH (19:20)
[2024-10-07 21:19] VITALS: O2SAT 97
[2024-10-07 21:30] VITALS: BP 137/73; PULSE 79; RESP 20; TEMP 97.9
--- NOTE | 2024-10-07 21:31 | NUR ---
REPORT GIVEN TO DANIELLA GALEAS
[2024-10-07 23:58] VITALS: BP 130/57; PULSE 63; RESP 20; TEMP 97.7
[2024-10-08] VITALS (9 sets, daily range): BP systolic 131–149; BP diastolic 61–76; PULSE 64–83; RESP 18–20; TEMP 97.6–98.5; O2SAT 95–96
[2024-10-08] MEDS ORDERED: ERGO500093 PO (01:32)
[2024-10-08 07:40] LABS: BASOPHILS # (AUTO) 0.04 K/uL (0.00-0.20); BASOPHILS % (AUTO) 0.4 % (0.0-5.0); EOSINOPHILS # (AUTO) 0.15 K/uL (0.00-0.70); EOSINOPHILS % (AUTO) 1.5 % (0.0-8.0); HEMATOCRIT 41.5 % (42-54); IMMATURE GRANULOCYTE ABSOLUTE 0.06 K/uL (0-1); LYMPHOCYTES # (AUTO) 1.6 K/uL (1.0-4.8); LYMPHOCYTES % (AUTO) 15.2 % (21.0-51.0); MEAN CORPUSCULAR HGB CONC 32.3 g/dL (32.0-36.0); MEAN CORPUSCULAR VOLUME 96.1 fL (79-99); MONOCYTES # (AUTO) 0.9 K/uL (0.1-1.0); MONOCYTES % (AUTO) 8.5 % (3.0-13.0); NEUTROPHILS # (AUTO) 7.6 K/uL (1.8-7.7); NEUTROPHILS % (AUTO) 73.8 % (40.0-77.0); PLATELET COUNT (AUTO) 165 K/uL (130-400); RED BLOOD CELL COUNT(AUTO) 4.32 MIL/uL (4.50-6.20); RED CELL DISTRIBUTION WIDTH 13.7 % (11.0-15.5); WHITE BLOOD COUNT (AUTO) 10.3 K/uL (4.8-10.8)
[2024-10-08 07:50] LABS: INR 2.07 (0.85-1.15); PROTHROMBIN TIME 20.4 SEC (9.6-11.6)
[2024-10-08 07:52] LABS: PARTIAL THROMBOPLASTIN TIME 39.7 SEC (26.3-35.5)
[2024-10-08 08:09] LABS: ALBUMIN 2.9 g/dL (3.5-5.0); BILIRUBIN,TOTAL 1.2 mg/dL (0.2-1.0); CREATININE 1.5 mg/dL (0.5-1.3); MAGNESIUM 2.2 mg/dL (1.80-2.40); POTASSIUM 4.8 mmol/L (3.5-5.1); TOTAL PROTEIN, SERUM 7.1 g/dL (6.0-8.3)
--- NOTE | 2024-10-08 08:48 | PN ---
[facility] PROGRESS NOTE Date of Service: October 08, 2024 Time of Service: 08:40 SUBJECTIVE: [ ] 78-year-old male with underlying history of atrial fibrillation maintained on chronic anticoagulation with Eliquis, history of pacemaker placement, hypertension, type 2 diabetes mellitus, hyperlipidemia, history of chronic abdominal ventral hernia being followed by Dr. Small with General surgery as outpatient who presented to the ER for further evaluation of significant pain involving the hernia site. 10/08/24 PATIENT IS LYING IN BED PATIENT DENIES ABDOMINAL PAIN PATIENT REPORTS HAVING FLATUS WAITING FOR SURGEON RECOMMENDATIONS. HE REMAINS NPO FOR NOW. REVIEW OF SYSTEMS CONSTITUTIONAL: Denies fevers, chills, or night sweats. No unintentional weight loss reported. NEUROLOGICAL: Denies headache, amaurosis fugax, motor weakness, sensory deficit, vertigo/spinning sensation, gait abnormalities, or tremors. ENT: No hearing loss, otalgia, otorrhea, rhinitis, rhinorrhea, hoarseness, or sore throat. CARDIOVASCULAR: Denies any exertional angina, dyspnea on exertion, orthopnea, paroxysmal nocturnal dyspnea, palpitations, life-threatening arrhythmias, claudication. PULMONARY: Denies any shortness of breath, cough, phlegm/sputum, hemoptysis, pleuritic chest pain. SLEEP: Denies morning headaches, daytime somnolence or napping. Denies difficulty falling asleep, staying asleep, waking from sleep. Denies knowledge of snoring. GASTROINTESTINAL: Patient reports having nausea, vomiting and abdominal pain which was severe in intensity this morning GENITOURINARY: Denies frequency, urgency, nocturia, hematuria or incontinence (Storage/Irritative symptoms.) Low urinary stream, straining to void, urinary intermittency or hesitancy, splitting of the voiding stream, terminal dribbling. ENDOCRINOLOGIC: Denies polyuria, polydipsia, polyphagia or heat/cold intolerances. HEMATOLOGIC: Denies thrombophilia/previous clots, or coagulopathy/bleeding disorders. ONCOLOGIC: Denies personal history of malignancy. DERMATOLOGIC: Denies rashes or pruritus. PSYCHIATRIC: Denies any suicidal or homicidal ideation. Denies hallucinations. PHYSICAL EXAM GENERAL APPEARANCE: The patient is awake, alert, and oriented, in no acute cardiopulmonary distress. NEUROLOGICAL: Cranial nerves II-XII grossly intact. Motor is 5/5 in bilateral upper and lower extremities proximal to distal. No sensory deficits. HEENT: Face is symmetric. Pupils are equal and reactive. Extraocular movements are intact. NECK: Supple. No JVD. No thyromegaly. No submental, submandibular, pre-/posta uricular, occipital or supraclavicular lymphadenopathy. CHEST: Normal chest expansion. No Telemetry. LUNGS: Absence of any rales, rhonchi or any wheezing. CARDIOVASCULAR: Regular. S1 and S2 normal. No appreciable rubs, murmurs or gallops. ABDOMEN: Soft, nontender, and nondistended. There is no rebound, voluntary guarding, or rigidity. : Deferred. No Echevarria. EXTREMITIES: Non-edematous and not cyanotic. No clubbing. Good capillary refill. SKIN: No skin breakdown. Vital Signs (last 8hr) Date Time Temp Pulse Resp B/P (MAP) Pulse Ox O2 Delivery O2 Flow Rate FiO2 10/08/24 07:41 97.5 65 19 137/63 96 Room Air 21 10/08/24 06:58 83 18 N/A Room Air 21 10/08/24 04:00 98.4 81 20 137/76 97 Room Air LABS: Laboratory: Test 10/08/24 07:35 10/08/24 05:19 10/07/24 15:35 10/07/24 11:17 Range/Units White Blood Count 10.3 4.8-10.8 K/uL Red Blood Count 4.32 L 4.50-6.20 MIL/uL Hemoglobin 13.4 L 14.0-18.0 g/dL Hematocrit 41.5 L 42-54 % Mean Corpuscular Volume 96.1 79-99 fL Mean Corpuscular Hemoglobin 31.0 27.0-33.0 pg Mean Corpuscular Hemoglobin Concent 32.3 32.0-36.0 g/dL Red Cell Distribution Width 13.7 11.0-15.5 % Platelet Count 165 130-400 K/uL Mean Platelet Volume 9.9 7.5-10.5 fL Immature Granulocyte % (Auto) 0.6 0-1 % Neutrophils (%) (Auto) 73.8 40.0-77.0 % Lymphocytes (%) (Auto) 15.2 L 21.0-51.0 % Monocytes (%) (Auto) 8.5 3.0-13.0 % Eosinophils (%) (Auto) 1.5 0.0-8.0 % Basophils (%) (Auto) 0.4 0.0-5.0 % Neutrophils # (Auto) 7.6 1.8-7.7 K/uL Lymphocytes # (Auto) 1.6 1.0-4.8 K/uL Monocytes # (Auto) 0.9 0.1-1.0 K/uL Eosinophils # (Auto) 0.15 0.00-0.70 K/uL Basophils # (Auto) 0.04 0.00-0.20 K/uL Absolute Immature Granulocyte (auto 0.06 0-1 K/uL Nucleated Red Blood Cells 0.0 0.0-0.19 % Prothrombin Time 20.4 H 9.6-11.6 SEC Prothromb Time International Ratio 2.07 H 0.85-1.15 Activated Partial Thromboplast Time 39.7 H 26.3-35.5 SEC Sodium Level 134 L 136-145 mmol/L Potassium Level 4.8 3.5-5.1 mmol/L Chloride Level 104 101-111 mmol/L Carbon Dioxide Level 25 21-32 mmol/L Blood Urea Nitrogen 35 H 7-18 mg/dL Creatinine 1.5 H 0.5-1.3 mg/dL Glomerular Filtration Rate Calc 47 >90 mL/min Random Glucose 188 H 70-105 mg/dL Total Calcium 10.2 H 8.5-10.1 mg/dL Magnesium Level 2.20 1.80-2.40 mg/dL Total Bilirubin 1.2 #H 0.2-1.0 mg/dL Aspartate Amino Transf (AST/SGOT) 20 10-37 U/L Alanine Aminotransferase (ALT/SGPT) 18 12-78 U/L Alkaline Phosphatase 79 50-136 U/L Total Protein 7.1 6.0-8.3 g/dL Albumin 2.9 L 3.5-5.0 g/dL Whole Blood Glucose 173 H 70-110 MG/DL Erythrocyte Sedimentation Rate 39 H 0-20 MM/HR Direct Bilirubin 0.2 0.0-0.3 mg/dL Lactate Dehydrogenase 163 81-234 U/L C-Reactive Protein, Quantitative 8.70 H 0.5-3.0 mg/L Procalcitonin < 0.05 L 0.05-0.5 ng/mL Urine Color LIGHT-YELLOW YELLOW Urine Appearance CLOUDY H CLEAR Urine pH 5.5 5.0-8.0 Urine Specific [place] 1.017 1.001-1.031 Urine Protein 70 H NEGATIVE mg/dL Urine Glucose (UA) >=1000 H NEGATIVE mg/dL Urine Ketones NEGATIVE NEGATIVE mg/dL Urine Occult Blood +- (TRACE) H NEGATIVE Urine Nitrate NEGATIVE NEGATIVE Urine Bilirubin NEGATIVE NEGATIVE mg/dL Urine Urobilinogen 0.2 0.2-1.0 mg/dL Urine Leukocyte Esterase 250 H NEGATIVE Lacy/uL Urine RBC 6-10 H 0-1 /HPF Urine WBC TNTC H 0-1 /HPF Urine Squamous Epithelial Cells RARE 0-2 /HPF Urine Bacteria MANY None Seen /HPF Current Medications Medications (Trade) Dose Ordered Sig/Riaz Route PRN Reason Start Time Stop Time Status Last Admin Dose Admin Acetaminophen (TYLenol 325MG TAB) 650 mg Q6H PRN PO MILD PAIN (1-3) 10/07/24 15:30 11/06/24 15:29 Dextrose (D50w) 50 ml AD PRN IV HYPOGLYCEMIA PROTOCOL 10/07/24 15:30 11/06/24 15:29 Enoxaparin Sodium (Lovenox) 30 mg DAILY SQ 10/08/24 09:00 11/07/24 08:59 Glucagon (Glucagon 1mg Kit) 1 mg AD PRN IM HYPOGLYCEMIA PROTOCOL 10/07/24 15:30 11/06/24 15:29 Hydralazine HCl (APRESOLine 20MG INJ) 5 mg Q6H PRN IV ADMINISTER FOR SBP > 160 10/07/24 18:00 11/06/24 17:59 Insulin Human Regular (humuLIN R 100 UNIT/ML 3ML) INSULIN SLIDING SCAL... ACHS SQ 10/07/24 16:30 11/06/24 16:29 10/07/24 16:50 5 UNIT Ipratropium [place] (AtrovENT UD) 0.5 mg [id number] PRN IH wheezing/ SOB 10/07/24 15:30 11/06/24 15:29 Levofloxacin/ Dextrose 50 ml @ 50 mls/hr Q24H IVPB 10/08/24 12:30 10/07/24 15:19 DC Levofloxacin/ Dextrose 50 ml @ 50 mls/hr Q24H IVPB 10/08/24 15:00 10/18/24 14:59 Levofloxacin/ Dextrose 100 ml @ 100 mls/hr Q24H IV 10/07/24 12:30 10/07/24 12:24 DC Magnesium Sulfate 50 ml @ 0 mls/hr PROTOCOL IV 10/07/24 16:30 11/06/24 16:29 10/07/24 23:40 50 MLS/HR Metoprolol Tartrate (loprESSOR) 5 mg Q6H PRN IV for a fib HR> 110 10/07/24 18:00 11/06/24 17:59 Morphine Sulfate (morPHINE 2MG SYG) 2 mg Q4H PRN IVP SEVERE PAIN (7-10) 10/07/24 15:30 10/14/24 15:29 Pantoprazole Sodium (PROTonix 40MG INJ) 40 mg Q24H IVP 10/07/24 15:30 11/06/24 15:29 10/07/24 16:22 40 MG Sodium Chloride 1,000 ml @ 80 mls/hr [id number] IV 10/07/24 15:30 11/06/24 15:29 10/08/24 03:25 80 MLS/HR DIAGNOSTICS / RADIOLOGY: [ ] ASSESSMENT: Incarcerated ventral abdominal hernia with acute small bowel obstruction, POA Urinary tract infection, POA Acute kidney injury, POA failed outpatient treatment: UTI POA Coagulopathy with elevated PT INR, 2/2 warfarin use as outpatient, POA Mild hypercalcemia, POA Uncontrolled hyperglycemia, POA Severe hypomagnesemia, POA Leukocytosis, POA History of chronic abdominal hernia for the past two years, POA History of atrial fibrillation maintained on chronic anticoagulation with warfarin, POA History of pacemaker placement, POA Underlying history of type 2 diabetes mellitus, POA History of penicillin allergy, POA PLAN: admit: cardiac telemetry floor diet: NPO waiting for surgeon recommendations IVFs: hydration with NS at 80 mL/hour Test: KUB now Antibiotics: IV levofloxacin for management of UTI, waiting for cultures cont with sliding scale insulin a.c. and HS consulted: General surgeon, coverstitch elastic attacher ECHO; pending results cont to hold Coumadin will cont with daily INR will cont to monitor patient heart rate: no RVR episodes overnight. PRN Lopressor replaced electrolytes as needed to keep K+ above 4.0 and mag. > 2.0 labs in am supportive measures with DVT/GI: ppx all questions addressed ATTESTATION BY PHYSICIAN I have seen and examined the patient. I reviewed the documentation, medical decision making, and treatment plan as noted by the mid-level provider above. I agree with the findings and plan of care. JOAQUIN CRAIG MD, ELIZABETH NP October 08, 2024 08:48
[2024-10-08] MEDS: ENOXAPARIN SODIUM 30 MG/0.3 ML SQ SCH (08:49)
--- NOTE | 2024-10-08 08:49 | EKG ---
[facility] Test Date: 2024-10-07 Test Time: 10:22:18 Pat Name: RAISSA NAVA Department: [facility] Room: 315 1 Gender: M Senior Service Technician: [id number] : 1945 Requested By: MARLYS CHRISTOPHER Order Number: [id number] Reading MD: Juan Antonio Tripp Measurements Intervals [place] Rate: 84 P: 58 SC: 206 QRS: -75 QRSD: 148 T: 93 QT: 407 QTc: 483 Interpretive Statements Sinus rythmn with atrial sensing and ventricular pacingVentricular-paced rhythm No previous ECG available for comparison Electronically Signed On 10-08-2024 12:48:59 CDT by Juan Antonio Tripp Please click the below link to view image of tracing.
--- NOTE | 2024-10-08 12:24 | HMCIMG ---
Exam Type: US RENAL SONOGRAM Clinical Information: pamela Comparison: None Findings: Examination shows normal renal size and echogenicity bilaterally. Preserved cortical thickness and corticomedullary junction region is seen. No hydronephrosis of either side. Right renal nonobstructing calculus, 4 mm. No renal masses are seen. There is no evidence of perinephric fluid on either side. No evidence of significant ureteral dilatation is seen. The right kidney measures 10.8 x 3.5 cm. The left kidney measures 10.3 x 4.2 cm. The urinary bladder is normal. No bladder masses, stones, or wall thickening is seen. IMPRESSION: Normal renal anatomy bilaterally. Nonobstructing right nephrolithiasis.
[2024-10-08] MEDS ORDERED: levoFLOXacin 250 MG/D5W 50ML 50 ML IVPB SCH (12:30)
--- NOTE | 2024-10-08 13:10 | HMCIMG ---
Exam Type: ABD 1VW Clinical Information: sbo Comparison: None Findings: Multiple dilated small bowel loops are seen with air-fluid levels. This is consistent with small bowel obstruction. Follow-up is advised.
[2024-10-08] MEDS: levoFLOXacin 250 MG/D5W 50ML 50 ML IVPB SCH (15:34)
[2024-10-08] MEDS: acetaMINOPHEN 325 MG TAB PO PRN (16:14)
--- NOTE | 2024-10-08 16:31 | CONS ---
CONSULT NOTE: Consulting physician:Dr Schmitt Consulting service: General surgery Reason for consultation: Ventral hernia with concerning small-bowel obstruction History of present illness: This is an 78-year-old male with a medical history of known ventral hernia who has been following doctor Geovanny in outpatient setting has been consulted back to our practice after presenting to the hospital with concerns of abdominal pain. Patient reports that hernia was reduced in ER but at time of exam hernia still present. On able to reduce at this time. Patient however reporting flatus. KUB still showing concerns of possible small bowel obstruction. Patient currently NPO. Abdomen soft and nontender. Patient is again reporting flatus with no complaints of nausea and vomiting. Patient takes Eliquis for AFib with a history of pacemaker currently on Lovenox. Unsure of last dose of Eliquis Medical history: Hypertension, history of atrial fibrillation maintained on chronic anticoagulati on with warfarin, history of BPH, history of chronic abdominal hernia for about two years PAST SURGICAL HISTORY: Pacemaker placement about 2-3 years ago PAST SOCIAL HISTORY: Denies active smoking or alcohol consumption FAMILY HISTORY: Denies pertinent family history Allergies: Patient has allergic reaction to penicillin Home medications: Lipitor 40 mg daily, cetirizine 10 mg daily, dutasteride 0.5 mg daily, ferrous gluconate 324 mg twice daily, HCTZ 25 mg daily, Protonix 40 mg b.i.d., Flomax 0.4 mg daily, warfarin 2 mg daily Coded Allergies: Penicillins (Unverified Allergy, Unknown, 10/07/24) Review of systems: General: No Fever, No Chills, No Night Sweats, No Fatigue, No Malaise, No Appetite, No Other HEENT: No Head Aches, No Visual Changes, No Eye Pain, No Ear Pain, No Dysphasia, No Sinus Congestion, No Post Nasal Drip, No Sore Throat, No Other Pulmonary: No Dyspnea, No Cough, No Pleuritic Chest Pain, No Other Cardiovascular: No: Chest Pain, Palpitations, Orthopnea, Paroxysmal No Dyspnea, Edema, Lt Headedness, Other Gastrointestinal: No: Nausea, Vomiting, Diarrhea, Constipation, Melena, Hematochezia, Other Genitourinary: No Dysuria, No Frequency, No Incontinence, No Hematuria, No Retention, No Other Musculoskeletal: No: other, neck pain, shoulder pain, arm pain, back pain, hand pain, leg pain, foot pain Skin: No Urticaria, No Rash, No Other Neurological: No: Weakness, Numbness, Incoordination, Change in speech, Confusion, Seizures, Other Physical exam: General: Awake alert and oriented Heart: Regular rate and rhythm} Lungs: [Clear to auscultation no distress Abdomen: [Concerns for Incarcerated ventral hernia Assessment: This is a 78-year-old male with concerns of small bowel obstruction likely due ventral hernia Plan: Patient to remain NPO Doctor Geovanny to be updated on patient's status Continue with conservative management Nursing to find out when last dose of Eliquis was administered Surgical team to follow patient closely JOHNNY BANKS Jr. October 08, 2024 16:31
--- NOTE | 2024-10-08 17:43 | NUR ---
Discharge Planning: Pt. states he lives with his spouse Abbie Hollins. Contact number is . PCP is EJ Bowman, and preferred pharmacy is [facility] in [place]. Pt. states he is independent with all ADL's. No home health or provider services. Pt. states he uses a walker to ambulate. No other DME at home. DCP is for home. No d/c needs for now. Addendum: 10/08/24 at 1750 by DESTINY GOLDBERG RN CM Amended: Links added.
--- NOTE | 2024-10-08 18:09 | PN ---
CONSULT NOTE: CARDIOLOGY Reason for consult: Atrial fibrillation HPI/story at presentation: This is a pleasant 78-year-old male with past medical history as per presents for abdominal pain, he has a known history of ventral hernia that started having more pain recently, he came to the ER for further evaluation management. Possible incarceration being evaluated. No history of atrial fibrillation on anticoagulation with Coumadin Subjective: 10/2024 abdominal pain 10/08/2024 no complakints Past medical history: See below Allergies, Meds See chart Review of systems Review of Systems Constitutional: Negative for chills and fever. HENT: Negative for ear discharge and ear pain. Eyes: Negative for photophobia and discharge. Respiratory: Negative for cough, sputum production and stridor. Cardiovascular: Negative for chest pain and palpitations. Gastrointestinal: Negative for diarrhea and vomiting. Genitourinary: Negative for frequency. Musculoskeletal: Negative for myalgias. Skin: Negative for rash. Neurological: Negative for focal weakness and seizures. Endo/Heme/Allergies: Negative for polydipsia. Psychiatric/Behavioral: Negative for hallucinations. Vitals see chart PHYSICAL EXAMINATION GENERAL: The patient is alert and oriented*3 HEENT: Nonicteric sclerae, non traumatic HEART: Regular rate and rhythm with no murmurs LUNGS: Clear to auscultation bilaterally ABDOMEN: DEFERRED, 10/2024 GENITAL, RECTAL: deferred SKIN: No rash NEUROLOGIC: NFND EXTREMITIES: No edema ASSESSMENT ATRIAL FIBRILLATION On anticoagulation with Coumadin, rate controlled with carvedilol at baseline Normal EF echocardiogram, 2021 BRADYCARDIA Status post pacemaker implantation CHRONIC ABDOMINAL VENTRAL HERNIA Presented with pain at the hernia site, incarceration Associated urinary tract infection Elevated white count at presentation ELEVATED INR At presentation Coumadin held at presentation INR of 2.6 at presentation ACUTE KIDNEY INJURY At presentation Creatinine 1.4 at presentation HISTORY OF GI BLEEDING History of rectal bleeding, 2021 HYPERTENSION, DIABETES, HYPERLIPIDEMIA CORE MEASURES Pending OTHER MEDICAL PROBLEMS Diverticulosis COVID-19 Anemia PLAN 10/07/2024 INR is therapeutic, would continue to hold Coumadin until any surgical plan is complete. Rates are currently, well-controlled and patient was taking high doses of carvedilol at home, currently on as needed metoprolol to help. Remains NPO. Echocardiogram has been ordered and is pending. 10/08/2024 Complaining of abdominal pain, upset about being n.p.o. INR elevated, however, trending down. Surgery being considered potentially depending on INR. Given normal EF on echocardiogram, patient is likely limited risk of becoming surgery. Multiple questions answered. Seen and examined 10/08/2024 at around 1800. ATTESTATION I was involved substantially in the care of this patient Number and complexity of problems addressed: 1 acute illness with systemic features Amount and or complexity of data Review of prior external note(s) from each unique source: 2+ Ordering of each unique test : 0 Review of the result(s) of each unique test: 2+ Assessment requiring an independent historian(s): No Independent interpretation of test performed by another MD/QHCP/appropriate source (not separately reported) : No Discussion of management or test interpretation with external MD/QHCP/appropriate source (not separately reported) : No Risk status (cardiac, billing related): Moderate Vitals/Labs Vital Signs Date Time Temp Pulse Resp B/P (MAP) Pulse Ox O2 Delivery O2 Flow Rate FiO2 10/08/24 11:31 97.5 68 20 142/72 95 Room Air 10/08/24 08:00 0 21 Laboratory Tests 10/08/24 07:35 Medications Current Medications Morphine Sulfate 4 mg ONCE ONCE IVP Last administered on 10/07/24at 11:43; Start 10/07/24 at 11:30; Stop 10/07/24 at 11:32; Status DC Ondansetron HCl 4 mg ONCE ONCE IVP Last administered on 10/07/24at 11:43; Start 10/07/24 at 11:30; Stop 10/07/24 at 11:32; Status DC Levofloxacin/ Dextrose 100 ml @ 100 mls/hr Q24H IV; Start 10/07/24 at 12:30; Stop 10/07/24 at 12:24; Status DC Levofloxacin/ Dextrose 100 ml @ 100 mls/hr ONCE ONCE IV Last administered on 10/07/24at 14:04; Start 10/07/24 at 12:30; Stop 10/07/24 at 13:29; Status DC Levofloxacin/ Dextrose 50 ml @ 50 mls/hr Q24H IVPB; Start 10/08/24 at 12:30; Stop 10/07/24 at 15:19; Status DC Iohexol 75 ml STK-MED ONCE IV; Start 10/07/24 at 13:37; Stop 10/07/24 at 13:37; Status DC Sodium Chloride 1,000 ml @ 80 mls/hr [id number] IV Last administered on 10/08/24at 15:34; Start 10/07/24 at 15:30; Stop 11/06/24 at 15:29 Pantoprazole Sodium 40 mg Q24H IVP Last administered on 10/08/24at 15:34; Start 10/07/24 at 15:30; Stop 11/06/24 at 15:29 Acetaminophen 650 mg Q6H PRN PO Last administered on 10/08/24at 16:14; Start 10/07/24 at 15:30; Stop 11/06/24 at 15:29 Morphine Sulfate 2 mg Q4H PRN IVP; Start 10/07/24 at 15:30; Stop 10/14/24 at 15:29 Insulin Human Regular INSULIN SLIDING SCAL... ACHS SQ Last administered on 10/08/24at 11:45; Start 10/07/24 at 16:30; Stop 11/06/24 at 16:29 Dextrose 50 ml AD PRN IV; Start 10/07/24 at 15:30; Stop 11/06/24 at 15:29 Glucagon 1 mg AD PRN IM; Start 10/07/24 at 15:30; Stop 11/06/24 at 15:29 Ipratropium [place] 0.5 mg [id number] PRN IH; Start 10/07/24 at 15:30; Stop 11/06/24 at 15:29 Enoxaparin Sodium 30 mg DAILY SQ Last administered on 10/08/24at 08:49; Start 10/08/24 at 09:00; Stop 11/07/24 at 08:59 Magnesium Sulfate 50 ml @ 0 mls/hr PROTOCOL IV Last administered on 10/07/24at 23:40; Start 10/07/24 at 16:30; Stop 11/06/24 at 16:29 Metoprolol Tartrate 5 mg Q6H PRN IV; Start 10/07/24 at 18:00; Stop 11/06/24 at 17:59 Hydralazine HCl 5 mg Q6H PRN IV; Start 10/07/24 at 18:00; Stop 11/06/24 at 17:59 Levofloxacin/ Dextrose 100 ml @ 100 mls/hr ONCE ONCE IV; Start 10/07/24 at 19:00; Stop 10/07/24 at 18:42; Status DC Levofloxacin/ Dextrose 50 ml @ 50 mls/hr Q24H IVPB Last administered on 10/08/24at 15:34; Start 10/08/24 at 15:00; Stop 10/18/24 at 14:[address] MD October 08, 2024 18:09
[2024-10-09] VITALS (11 sets, daily range): BP systolic 121–148; BP diastolic 56–69; PULSE 61–82; RESP 17–20; TEMP 97.4–98.1; O2SAT 94–97
--- NOTE | 2024-10-09 04:09 | HMCSR ---
APPROVED REPORT EXAM: Two-dimensional and M-mode echocardiogram with Doppler and color Doppler. INDICATION ICD: Pre-Op 2D Dimensions RVDd2.9 cmLVEF(%)80.7 (>50%)LVED Vol(simp.)75.0 mL IVSd1.1 (0.7-1.1cm)FS(%)49 %LVES Vol(simp.)30.0 mL LVDd4.4 (3.8-5.6cm)LA (2D)4.9 (1.6-4.0cm)LVEF(%, simp.)59 % PWd1.0 (0.7-1.1cm)Ao Root(2D)3.5 (2.0-3.7cm)LA ESV INDEX (BP)50.22 mL/m2 IVSs1.5 cmLVOT diam2.4 (1.8-2.4cm) LVDs2.2 (2.5-4.0cm) PWs1.5 cm Deformation Strain Apical 4-17.9 % Apical 2-12.5 % Apical 3-17.6 % Global Strain-16.0 % M-Mode Dimensions EPSS0.8 cm LA (MM)4.5 (1.6-4.0cm) Ao Root(MM)3.5 (2.0-3.7cm) Aortic Valve AoV Vmax0.8 m/Dandy Peak GR2.8 mmHgLVOT Vmax0.8 m/s AoV VTI0.2 mAo Mean GR1.9 mmHgLVOT VTI0.18 m LEV (VMAX)4.80 cm2Al P1/2T581 msAVA (VTI) 4.8 cm2 Mitral Valve MV E Lnbb925.2 cm/sDECEL Wajs463 ms P 1/2 T59 ms MVA (PHT)3.8 cm2 TDI E/E' Pyzkgw68.7E/E' Jazwvkv08.5 Medial E' Peak V8.18 cm/sLateral E' Peak V7.22 cm/s Pulmonary Valve PV Vmax0.7 m/sPV VTI0.13 mPV Mean GR1.1 mmHg PV Peak GR1.9 mmHg Tricuspid Valve TR Vmax3.1 m/sRVSP34.6 mmHg TR Peak GR39.7 mmHg Left Ventricle The left ventricle is normal size. Normal wall motion There is normal left ventricular wall thickness . The LVEF is > 55%. Diastolic function was not assessed Right Ventricle The right ventricle is normal size. Right ventricular systolic function is moderately reduced. Atria The left atrium is severely dilated. LASVI 50mL/m�. The right atrium size is normal. Aortic Valve The aortic valve is normal in structure. Mild aortic regurgitation is present. There is no aortic harley vular stenosis. Mitral Valve Mitral valve leaflets open well. There is mitral annular calcification. There is mild mitral valve re gurgitation noted. There is no mitral valve stenosis. Tricuspid Valve The tricuspid valve is normal in structure. There is mild to moderate tricuspid valve regurgitation n oted. Pulmonic Valve Not well seen There is no pulmonic valvular regurgitation. Great Vessels The aortic root is normal in size. The IVC is normal in size and collapses >50% with inspiration. Pericardium There is no pericardial effusion. Other Information Quality : Adequate Conclusion The LVEF is > 55%. Diastolic function was not assessed There is normal left ventricular wall thickness. The left ventricle is normal size. Normal wall motion Right ventricular systolic function is moderately reduced. The left atrium is severely dilated. LASVI 50mL/m�. There is mitral annular calcification. There is mild to moderate tricuspid valve regurgitation noted. There is no pericardial effusion. Normal pulmonary pressures Study quality was adequate
[2024-10-09 06:14] LABS: BASOPHILS # (AUTO) 0.08 K/uL (0.00-0.20); EOSINOPHILS % (AUTO) 4.9 % (0.0-8.0); HEMATOCRIT 39.3 % (42-54); IMMATURE GRANULOCYTE ABSOLUTE 0.02 K/uL (0-1); LYMPHOCYTES # (AUTO) 2.2 K/uL (1.0-4.8); LYMPHOCYTES % (AUTO) 27.3 % (21.0-51.0); MEAN CORPUSCULAR HEMOGLOBIN 30.9 pg (27.0-33.0); MEAN CORPUSCULAR HGB CONC 32.1 g/dL (32.0-36.0); MEAN CORPUSCULAR VOLUME 96.3 fL (79-99); MONOCYTES # (AUTO) 0.7 K/uL (0.1-1.0); MONOCYTES % (AUTO) 8.9 % (3.0-13.0); NEUTROPHILS # (AUTO) 4.7 K/uL (1.8-7.7); NEUTROPHILS % (AUTO) 57.7 % (40.0-77.0); PLATELET COUNT (AUTO) 160 K/uL (130-400); RED BLOOD CELL COUNT(AUTO) 4.08 MIL/uL (4.50-6.20); WHITE BLOOD COUNT (AUTO) 8.2 K/uL (4.8-10.8)
[2024-10-09 06:25] LABS: INR 1.74 (0.85-1.15); PROTHROMBIN TIME 17.5 SEC (9.6-11.6)
[2024-10-09 06:34] LABS: ALBUMIN 2.6 g/dL (3.5-5.0); BILIRUBIN,TOTAL 1.3 mg/dL (0.2-1.0); CREATININE 1.3 mg/dL (0.5-1.3); MAGNESIUM 1.8 mg/dL (1.80-2.40); POTASSIUM 4.4 mmol/L (3.5-5.1); TOTAL PROTEIN, SERUM 6.5 g/dL (6.0-8.3)
[2024-10-09] MEDS: LACTATED RINGERS 1000ML 1,000 ML IV SCH (07:41)
--- NOTE | 2024-10-09 08:55 | PN ---
[facility] PROGRESS NOTE Date of Service: October 09, 2024 Time of Service: 08:49 SUBJECTIVE: [ ] 78-year-old male with underlying history of atrial fibrillation maintained on chronic anticoagulation with Eliquis, history of pacemaker placement, hypertension, type 2 diabetes mellitus, hyperlipidemia, history of chronic abdominal ventral hernia being followed by Dr. Small with General surgery as outpatient who presented to the ER for further evaluation of significant pain involving the hernia site. 10/08/24 PATIENT IS LYING IN BED PATIENT DENIES ABDOMINAL PAIN PATIENT REPORTS HAVING FLATUS WAITING FOR SURGEON RECOMMENDATIONS. HE REMAINS NPO FOR NOW. 10/09/24 we will continue with conservative management waiting for Dr. Rey recommendations.We will continue to monitor INR given to patient has AFib Coumadin is placed on hold for any invasive procedures. Today INR 1.7. Surgery being considered potentially depending on INR. Fractionation Supervisor's following for clearance limited risk as per his note. 11:00 a.m. was seen by surgery no surgical intervention on this admission we will be started on a diet we will follow-up with Dr. Steinberg 1-2 weeks. Patient's INR 1.7 We will restart Coumadin. REVIEW OF SYSTEMS CONSTITUTIONAL: Denies fevers, chills, or night sweats. No unintentional weight loss reported. NEUROLOGICAL: Denies headache, amaurosis fugax, motor weakness, sensory deficit, vertigo/spinning sensation, gait abnormalities, or tremors. ENT: No hearing loss, otalgia, otorrhea, rhinitis, rhinorrhea, hoarseness, or sore throat. CARDIOVASCULAR: Denies any exertional angina, dyspnea on exertion, orthopnea, paroxysmal nocturnal dyspnea, palpitations, life-threatening arrhythmias, claudication. PULMONARY: Denies any shortness of breath, cough, phlegm/sputum, hemoptysis, pleuritic chest pain. SLEEP: Denies morning headaches, daytime somnolence or napping. Denies difficulty falling asleep, staying asleep, waking from sleep. Denies knowledge of snoring. GASTROINTESTINAL: Patient reports having nausea, vomiting and abdominal pain which was severe in intensity this morning GENITOURINARY: Denies frequency, urgency, nocturia, hematuria or incontinence (Storage/Irritative symptoms.) Low urinary stream, straining to void, urinary intermittency or hesitancy, splitting of the voiding stream, terminal dribbling. ENDOCRINOLOGIC: Denies polyuria, polydipsia, polyphagia or heat/cold intolerances. HEMATOLOGIC: Denies thrombophilia/previous clots, or coagulopathy/bleeding disorders. ONCOLOGIC: Denies personal history of malignancy. DERMATOLOGIC: Denies rashes or pruritus. PSYCHIATRIC: Denies any suicidal or homicidal ideation. Denies hallucinations. PHYSICAL EXAM GENERAL APPEARANCE: The patient is awake, alert, and oriented, in no acute cardiopulmonary distress. NEUROLOGICAL: Cranial nerves II-XII grossly intact. Motor is 5/5 in bilateral upper and lower extremities proximal to distal. No sensory deficits. HEENT: Face is symmetric. Pupils are equal and reactive. Extraocular movements are intact. NECK: Supple. No JVD. No thyromegaly. No submental, submandibular, pre- /postauricular, occipital or supraclavicular lymphadenopathy. CHEST: Normal chest expansion. No Telemetry. LUNGS: Absence of any rales, rhonchi or any wheezing. CARDIOVASCULAR: Regular. S1 and S2 normal. No appreciable rubs, murmurs or gallops. ABDOMEN: Soft, nontender, and nondistended. There is no rebound, voluntary guarding, or rigidity. : Deferred. No Echevarria. EXTREMITIES: Non-edematous and not cyanotic. No clubbing. Good capillary refill. SKIN: No skin breakdown. Vital Signs (last 8hr) Date Time Temp Pulse Resp B/P (MAP) Pulse Ox O2 Delivery O2 Flow Rate FiO2 10/09/24 07:58 97.5 68 18 148/67 96 Room Air 21 10/09/24 04:31 97.5 63 18 126/60 96 Room Air LABS: Laboratory: Test 10/09/24 05:57 10/09/24 05:10 10/08/24 07:35 10/07/24 15:35 Range/Units White Blood Count 8.2 4.8-10.8 K/uL Red Blood Count 4.08 L 4.50-6.20 MIL/uL Hemoglobin 12.6 L 14.0-18.0 g/dL Hematocrit 39.3 L 42-54 % Mean Corpuscular Volume 96.3 79-99 fL Mean Corpuscular Hemoglobin 30.9 27.0-33.0 pg Mean Corpuscular Hemoglobin Concent 32.1 32.0-36.0 g/dL Red Cell Distribution Width 14.0 11.0-15.5 % Platelet Count 160 130-400 K/uL Mean Platelet Volume 10.0 7.5-10.5 fL Immature Granulocyte % (Auto) 0.2 0-1 % Neutrophils (%) (Auto) 57.7 40.0-77.0 % Lymphocytes (%) (Auto) 27.3 21.0-51.0 % Monocytes (%) (Auto) 8.9 3.0-13.0 % Eosinophils (%) (Auto) 4.9 0.0-8.0 % Basophils (%) (Auto) 1.0 0.0-5.0 % Neutrophils # (Auto) 4.7 1.8-7.7 K/uL Lymphocytes # (Auto) 2.2 1.0-4.8 K/uL Monocytes # (Auto) 0.7 0.1-1.0 K/uL Eosinophils # (Auto) 0.40 0.00-0.70 K/uL Basophils # (Auto) 0.08 0.00-0.20 K/uL Absolute Immature Granulocyte (auto 0.02 0-1 K/uL Nucleated Red Blood Cells 0.0 0.0-0.19 % Prothrombin Time 17.5 H 9.6-11.6 SEC Prothromb Time International Ratio 1.74 H 0.85-1.15 Sodium Level 138 136-145 mmol/L Potassium Level 4.4 3.5-5.1 mmol/L Chloride Level 107 101-111 mmol/L Carbon Dioxide Level 25 21-32 mmol/L Blood Urea Nitrogen 37 H 7-18 mg/dL Creatinine 1.3 0.5-1.3 mg/dL Glomerular Filtration Rate Calc 56 >90 mL/min Random Glucose 126 H 70-105 mg/dL Total Calcium 10.1 8.5-10.1 mg/dL Magnesium Level 1.80 1.80-2.40 mg/dL Total Bilirubin 1.3 H 0.2-1.0 mg/dL Aspartate Amino Transf (AST/SGOT) 20 10-37 U/L Alanine Aminotransferase (ALT/SGPT) 14 # 12-78 U/L Alkaline Phosphatase 67 50-136 U/L Total Protein 6.5 6.0-8.3 g/dL Albumin 2.6 L 3.5-5.0 g/dL Whole Blood Glucose 126 H 70-110 MG/DL Activated Partial Thromboplast Time 39.7 H 26.3-35.5 SEC Erythrocyte Sedimentation Rate 39 H 0-20 MM/HR Direct Bilirubin 0.2 0.0-0.3 mg/dL Lactate Dehydrogenase 163 81-234 U/L C-Reactive Protein, Quantitative 8.70 H 0.5-3.0 mg/L Procalcitonin < 0.05 L 0.05-0.5 ng/mL Test 10/07/24 11:17 Range/Units Urine Color LIGHT-YELLOW YELLOW Urine Appearance CLOUDY H CLEAR Urine pH 5.5 5.0-8.0 Urine Specific [place] 1.017 1.001-1.031 Urine Protein 70 H NEGATIVE mg/dL Urine Glucose (UA) >=1000 H NEGATIVE mg/dL Urine Ketones NEGATIVE NEGATIVE mg/dL Urine Occult Blood +- (TRACE) H NEGATIVE Urine Nitrate NEGATIVE NEGATIVE Urine Bilirubin NEGATIVE NEGATIVE mg/dL Urine Urobilinogen 0.2 0.2-1.0 mg/dL Urine Leukocyte Esterase 250 H NEGATIVE Lacy/uL Urine RBC 6-10 H 0-1 /HPF Urine WBC TNTC H 0-1 /HPF Urine Squamous Epithelial Cells RARE 0-2 /HPF Urine Bacteria MANY None Seen /HPF Current Medications Medications (Trade) Dose Ordered Sig/Riaz Route PRN Reason Start Time Stop Time Status Last Admin Dose Admin Acetaminophen (TYLenol 325MG TAB) 650 mg Q6H PRN PO MILD PAIN (1-3) 10/07/24 15:30 11/06/24 15:29 10/08/24 22:47 650 MG Dextrose (D50w) 50 ml AD PRN IV HYPOGLYCEMIA PROTOCOL 10/07/24 15:30 11/06/24 15:29 Enoxaparin Sodium (Lovenox) 30 mg DAILY SQ 10/08/24 09:00 11/07/24 08:59 10/09/24 07:42 30 MG Glucagon (Glucagon 1mg Kit) 1 mg AD PRN IM HYPOGLYCEMIA PROTOCOL 10/07/24 15:30 11/06/24 15:29 Hydralazine HCl (APRESOLine 20MG INJ) 5 mg Q6H PRN IV ADMINISTER FOR SBP > 160 10/07/24 18:00 11/06/24 17:59 Insulin Human Regular (humuLIN R 100 UNIT/ML 3ML) INSULIN SLIDING SCAL... ACHS SQ 10/07/24 16:30 11/06/24 16:29 10/08/24 11:45 2 UNIT Ipratropium [place]ett (AtrovENT UD) 0.5 mg [id number] PRN IH wheezing/ SOB 10/07/24 15:30 11/06/24 15:29 Lactated Ringer's 1,000 ml @ 80 mls/hr [id number] IV 10/08/24 18:30 11/07/24 18:29 10/09/24 07:43 80 MLS/HR Levofloxacin/ Dextrose 50 ml @ 50 mls/hr Q24H IVPB 10/08/24 12:30 10/07/24 15:19 DC Levofloxacin/ Dextrose 50 ml @ 50 mls/hr Q24H IVPB 10/08/24 15:00 10/18/24 14:59 10/08/24 15:34 50 MLS/HR Levofloxacin/ Dextrose 100 ml @ 100 mls/hr Q24H IV 10/07/24 12:30 10/07/24 12:24 DC Magnesium Sulfate 50 ml @ 0 mls/hr PROTOCOL IV 10/07/24 16:30 11/06/24 16:29 10/07/24 23:40 50 MLS/HR Metoprolol Tartrate (loprESSOR) 5 mg Q6H PRN IV for a fib HR> 110 10/07/24 18:00 11/06/24 17:59 Morphine Sulfate (morPHINE 2MG SYG) 2 mg Q4H PRN IVP SEVERE PAIN (7-10) 10/07/24 15:30 10/14/24 15:29 Pantoprazole Sodium (PROTonix 40MG INJ) 40 mg Q24H IVP 10/07/24 15:30 11/06/24 15:29 10/08/24 15:34 40 MG Sodium Chloride 1,000 ml @ 80 mls/hr [id number] IV 10/07/24 15:30 10/08/24 18:28 DC 10/08/24 15:34 80 MLS/HR DIAGNOSTICS / RADIOLOGY: [ ] ASSESSMENT: Incarcerated ventral abdominal hernia with acute small bowel obstruction, POA Urinary tract infection, POA Acute kidney injury, POA Coagulopathy with elevated PT INR, 2/2 warfarin use as outpatient, POA Mild hypercalcemia, POA Uncontrolled hyperglycemia, POA Severe hypomagnesemia, POA Leukocytosis, POA History of chronic abdominal hernia for the past two years, POA History of atrial fibrillation maintained on chronic anticoagulation with warfarin, POA History of pacemaker placement, POA Underlying history of type 2 diabetes mellitus, POA History of penicillin allergy, POA PLAN: admit: cardiac telemetry floor diet: Surgeon started diet we will be monitored IVFs Hep-Lock consulted: General surgeon, internal review and audit compliance Surgery being considered potentially depending on INR Antibiotics: IV levofloxacin for management of UTI, waiting for cultures cont with sliding scale insulin a.c. and HS ECHO; noted normal EF internal review and audit compliance's patient is likely limited risk for surgery. Resume Coumadin2 mg p.o. daily Resumed Coumadin will cont with daily INR today 1.7 will cont to monitor patient heart rate: no RVR episodes overnight. PRN Lopressor replaced electrolytes as needed to keep K+ above 4.0 and mag. > 2.0 labs in am supportive measures with DVT/GI: ppx all questions addressed ATTESTATION BY PHYSICIAN I have seen and examined the patient. I reviewed the documentation, medical decision making, and treatment plan as noted by the mid-level provider above. I agree with the findings and plan of care. JOAQUIN CRAIG MD, ELIZABETH NP October 09, 2024 08:55
--- NOTE | 2024-10-09 11:08 | PN ---
This is an 78-year-old male with concerns of ventral hernia which was reduced overnight Interval history: This 78-year-old male seen in his room resting comfortably Ventral hernia reduced overnight Patient is passing flatus with no abdominal pain reported abdomen soft No nausea or vomiting reported Labs and vitals stable Physical exam General: Awake alert and oriented Heart: Regular rate and rhythm} Lungs: Clear to auscultation no distress Abdomen: [Soft, nontender, nondistended reduced hernia noted Assessment : This is an 78-year-old male with concerns of ventral hernia which was reduced overnight Plan: At this point in time recommendation will be for patient to be started on diet and advanced as tolerated The patient is asymptomatic recommendations will be for follow up in 1-[address] Small is office were elective ventral hernia repair will be scheduled Patient encouraged to ambulate and continue with pressor dressing and abdominal binder usage Surgical team to follow patient closely and nursing to report any further acute events Vitals/Labs Vital Signs Date Time Temp Pulse Resp B/P (MAP) Pulse Ox O2 Delivery O2 Flow Rate FiO2 10/09/24 08:25 78 20 N/A Room Air 21 10/09/24 07:58 97.5 148/67 96 10/08/24 20:00 0 Laboratory Tests 10/09/24 05:57 Medications Current Medications Morphine Sulfate 4 mg ONCE ONCE IVP Last administered on 10/07/24at 11:43; Start 10/07/24 at 11:30; Stop 10/07/24 at 11:32; Status DC Ondansetron HCl 4 mg ONCE ONCE IVP Last administered on 10/07/24at 11:43; Start 10/07/24 at 11:30; Stop 10/07/24 at 11:32; Status DC Levofloxacin/ Dextrose 100 ml @ 100 mls/hr Q24H IV; Start 10/07/24 at 12:30; Stop 10/07/24 at 12:24; Status DC Levofloxacin/ Dextrose 100 ml @ 100 mls/hr ONCE ONCE IV Last administered on 10/07/24at 14:04; Start 10/07/24 at 12:30; Stop 10/07/24 at 13:29; Status DC Levofloxacin/ Dextrose 50 ml @ 50 mls/hr Q24H IVPB; Start 10/08/24 at 12:30; Stop 10/07/24 at 15:19; Status DC Iohexol 75 ml STK-MED ONCE IV; Start 10/07/24 at 13:37; Stop 10/07/24 at 13:37; Status DC Sodium Chloride 1,000 ml @ 80 mls/hr [id number] IV Last administered on 10/08/24at 15:34; Start 10/07/24 at 15:30; Stop 10/08/24 at 18:28; Status DC Pantoprazole Sodium 40 mg Q24H IVP Last administered on 10/08/24at 15:34; Start 10/07/24 at 15:30; Stop 11/06/24 at 15:29 Acetaminophen 650 mg Q6H PRN PO Last administered on 10/08/24at 22:47; Start 10/07/24 at 15:30; Stop 11/06/24 at 15:29 Morphine Sulfate 2 mg Q4H PRN IVP; Start 10/07/24 at 15:30; Stop 10/14/24 at 15:29 Insulin Human Regular INSULIN SLIDING SCAL... ACHS SQ Last administered on 10/08/24at 11:45; Start 10/07/24 at 16:30; Stop 11/06/24 at 16:29 Dextrose 50 ml AD PRN IV; Start 10/07/24 at 15:30; Stop 11/06/24 at 15:29 Glucagon 1 mg AD PRN IM; Start 10/07/24 at 15:30; Stop 11/06/24 at 15:29 Ipratropium [place] 0.5 mg [id number] PRN IH; Start 10/07/24 at 15:30; Stop 11/06/24 at 15:29 Enoxaparin Sodium 30 mg DAILY SQ Last administered on 10/09/24at 07:42; Start 10/08/24 at 09:00; Stop 11/07/24 at 08:59 Magnesium Sulfate 50 ml @ 0 mls/hr PROTOCOL IV Last administered on 10/07/24at 23:40; Start 10/07/24 at 16:30; Stop 11/06/24 at 16:29 Metoprolol Tartrate 5 mg Q6H PRN IV; Start 10/07/24 at 18:00; Stop 11/06/24 at 17:59 Hydralazine HCl 5 mg Q6H PRN IV; Start 10/07/24 at 18:00; Stop 11/06/24 at 17:59 Levofloxacin/ Dextrose 100 ml @ 100 mls/hr ONCE ONCE IV; Start 10/07/24 at 19:00; Stop 10/07/24 at 18:42; Status DC Levofloxacin/ Dextrose 50 ml @ 50 mls/hr Q24H IVPB Last administered on 10/08/24at 15:34; Start 10/08/24 at 15:00; Stop 10/18/24 at 14:59 Lactated Ringer's 1,000 ml @ 80 mls/hr [id number] IV Last administered on 10/09/24at 07:43; Start 10/08/24 at 18:30; Stop 11/07/24 at 18:29 JOHNNY BANKS Jr. October 09, 2024 11:08
--- NOTE | 2024-10-09 12:41 | PN ---
CARDIOLOGY Reason for consult: Atrial fibrillation HPI/story at presentation: This is a pleasant 78-year-old male with past medical history as per presents for abdominal pain, he has a known history of ventral hernia that started having more pain recently, he came to the ER for further evaluation management. Possible incarceration being evaluated. No history of atrial fibrillation on anticoagulation with Coumadin Subjective: 10/2024 abdominal pain 10/08/2024 no complakints Past medical history: See below Allergies, Meds See chart Review of systems Review of Systems Constitutional: Negative for chills and fever. HENT: Negative for ear discharge and ear pain. Eyes: Negative for photophobia and discharge. Respiratory: Negative for cough, sputum production and stridor. Cardiovascular: Negative for chest pain and palpitations. Gastrointestinal: Negative for diarrhea and vomiting. Genitourinary: Negative for frequency. Musculoskeletal: Negative for myalgias. Skin: Negative for rash. Neurological: Negative for focal weakness and seizures. Endo/Heme/Allergies: Negative for polydipsia. Psychiatric/Behavioral: Negative for hallucinations. Vitals see chart PHYSICAL EXAMINATION GENERAL: The patient is alert and oriented*3 HEENT: Nonicteric sclerae, non traumatic HEART: Regular rate and rhythm with no murmurs LUNGS: Clear to auscultation bilaterally ABDOMEN: DEFERRED, 10/2024 GENITAL, RECTAL: deferred SKIN: No rash NEUROLOGIC: NFND EXTREMITIES: No edema ASSESSMENT ATRIAL FIBRILLATION On anticoagulation with Coumadin, rate controlled with carvedilol at baseline Normal EF echocardiogram, 2021 BRADYCARDIA Status post pacemaker implantation CHRONIC ABDOMINAL VENTRAL HERNIA Presented with pain at the hernia site, incarceration Associated urinary tract infection Elevated white count at presentation ELEVATED INR At presentation Coumadin held at presentation INR of 2.6 at presentation ACUTE KIDNEY INJURY At presentation Creatinine 1.4 at presentation HISTORY OF GI BLEEDING History of rectal bleeding, 2021 HYPERTENSION, DIABETES, HYPERLIPIDEMIA CORE MEASURES Pending OTHER MEDICAL PROBLEMS Diverticulosis COVID-19 Anemia PLAN 10/07/2024 INR is therapeutic, would continue to hold Coumadin until any surgical plan is complete. Rates are currently, well-controlled and patient was taking high doses of carvedilol at home, currently on as needed metoprolol to help. Remains NPO. Echocardiogram has been ordered and is pending. 10/08/2024 Complaining of abdominal pain, upset about being n.p.o. INR elevated, however, trending down. Surgery being considered potentially depending on INR. Given normal EF on echocardiogram, patient is likely limited risk of becoming surgery. Multiple questions answered. Seen and examined 10/08/2024 at around 1800. 10/09/2024 Continue management from a surgical standpoint per documentation. Echo was within normal limits. Currently denies evaluation with cardiac standpoint and outpatient ventral hernia surgery is being planned. Coumadin can be restarted if no plans for surgery Seen and examined 10/09/2024 at around 1400 ATTESTATION I was involved substantially in the care of this patient Number and complexity of problems addressed: 1 acute illness with systemic features Amount and or complexity of data Review of prior external note(s) from each unique source: 2+ Ordering of each unique test : 0 Review of the result(s) of each unique test: 2+ Assessment requiring an independent historian(s): No Independent interpretation of test performed by another MD/QHCP/appropriate source (not separately reported) : No Discussion of management or test interpretation with external MD/QHCP/appropriate source (not separately reported) : No Risk status (cardiac, billing related): Moderate Vitals/Labs Vital Signs Date Time Temp Pulse Resp B/P (MAP) Pulse Ox O2 Delivery O2 Flow Rate FiO2 10/09/24 11:27 97.7 62 18 135/56 98 Room Air 21 10/08/24 20:00 0 Laboratory Tests 10/09/24 05:57 Medications Current Medications Morphine Sulfate 4 mg ONCE ONCE IVP Last administered on 10/07/24at 11:43; Start 10/07/24 at 11:30; Stop 10/07/24 at 11:32; Status DC Ondansetron HCl 4 mg ONCE ONCE IVP Last administered on 10/07/24at 11:43; Start 10/07/24 at 11:30; Stop 10/07/24 at 11:32; Status DC Levofloxacin/ Dextrose 100 ml @ 100 mls/hr Q24H IV; Start 10/07/24 at 12:30; Stop 10/07/24 at 12:24; Status DC Levofloxacin/ Dextrose 100 ml @ 100 mls/hr ONCE ONCE IV Last administered on 10/07/24at 14:04; Start 10/07/24 at 12:30; Stop 10/07/24 at 13:29; Status DC Levofloxacin/ Dextrose 50 ml @ 50 mls/hr Q24H IVPB; Start 10/08/24 at 12:30; Stop 10/07/24 at 15:19; Status DC Iohexol 75 ml STK-MED ONCE IV; Start 10/07/24 at 13:37; Stop 10/07/24 at 13:37; Status DC Sodium Chloride 1,000 ml @ 80 mls/hr [id number] IV Last administered on 10/08/24at 15:34; Start 10/07/24 at 15:30; Stop 10/08/24 at 18:28; Status DC Pantoprazole Sodium 40 mg Q24H IVP Last administered on 10/08/24at 15:34; Start 10/07/24 at 15:30; Stop 11/06/24 at 15:29 Acetaminophen 650 mg Q6H PRN PO Last administered on 10/08/24at 22:47; Start 10/07/24 at 15:30; Stop 11/06/24 at 15:29 Morphine Sulfate 2 mg Q4H PRN IVP; Start 10/07/24 at 15:30; Stop 10/14/24 at 15:29 Insulin Human Regular INSULIN SLIDING SCAL... ACHS SQ Last administered on 10/08/24at 11:45; Start 10/07/24 at 16:30; Stop 11/06/24 at 16:29 Dextrose 50 ml AD PRN IV; Start 10/07/24 at 15:30; Stop 11/06/24 at 15:29 Glucagon 1 mg AD PRN IM; Start 10/07/24 at 15:30; Stop 11/06/24 at 15:29 Ipratropium [place] 0.5 mg [id number] PRN IH; Start 10/07/24 at 15:30; Stop 11/06/24 at 15:29 Enoxaparin Sodium 30 mg DAILY SQ Last administered on 10/09/24at 07:42; Start 10/08/24 at 09:00; Stop 11/07/24 at 08:59 Magnesium Sulfate 50 ml @ 0 mls/hr PROTOCOL IV Last administered on 10/07/24at 23:40; Start 10/07/24 at 16:30; Stop 11/06/24 at 16:29 Metoprolol Tartrate 5 mg Q6H PRN IV; Start 10/07/24 at 18:00; Stop 11/06/24 at 17:59 Hydralazine HCl 5 mg Q6H PRN IV; Start 10/07/24 at 18:00; Stop 11/06/24 at 17:59 Levofloxacin/ Dextrose 100 ml @ 100 mls/hr ONCE ONCE IV; Start 10/07/24 at 19:00; Stop 10/07/24 at 18:42; Status DC Levofloxacin/ Dextrose 50 ml @ 50 mls/hr Q24H IVPB Last administered on 10/08/24at 15:34; Start 10/08/24 at 15:00; Stop 10/09/24 at 11:31; Status DC Lactated Ringer's 1,000 ml @ 80 mls/hr [id number] IV Last administered on 10/09/24at 07:43; Start 10/08/24 at 18:30; Stop 11/07/24 at 18:29 Warfarin Sodium 2 mg WARF PO; Start 10/09/24 at 16:00; Stop 10/09/24 at 11:50; Status DC Nitrofurantoin Macrocrystals 100 mg BID PO; Start 10/09/24 at 21:00; Stop 10/19/24 at 20:[address] MD October 09, 2024 12:41
[2024-10-09] MEDS ORDERED: WARFARIN SODIUM 2 MG TAB PO SCH (16:00)
[2024-10-09] MEDS: WARFARIN SODIUM 2 MG TAB PO SCH (17:49)
[2024-10-09] MEDS: NITROFURANTOIN MONOHYD/M-CRYST 100 MG CAPSULE PO SCH (21:18)
[2024-10-10] VITALS (7 sets, daily range): BP systolic 103–130; BP diastolic 55–69; PULSE 60–84; RESP 16–18; TEMP 97.5–98.2; O2SAT 98
[2024-10-10 06:12] LABS: INR 1.45 (0.85-1.15); PROTHROMBIN TIME 14.8 SEC (9.6-11.6)
--- NOTE | 2024-10-10 11:31 | PN ---
This is an 78-year-old male with a reduced ventral hernia Interval history: This 78-year-old male seen in his room resting Hernia continues to remain reduced with pressure abdominal binding in place Patient tolerating full liquids and having bowel movements No signs of incarcerated hernia at this time or obstruction Labs and vitals stable Physical exam General: Awake alert and oriented Heart: Regular rate and rhythm} Lungs: Clear to auscultation no distress Abdomen: [Soft, nontender, nondistended hernia reduced Assessment : This is an 78-year-old male with a ventral hernia with resolved obstruction Plan Patient has agreed to follow up in outpatient setting now that warfarin has been started for elective procedure in 1-[address] Small for potential robotic repair of ventral hernia Patient to advance diet to solids if tolerated the patient is cleared for discharge Patient advised to continue with the abdominal binder in pressure bandaging to keep hernia reduced until follow up with doctor Small Surgical team to cleared patient for discharge today. Thank you Vitals/Labs Vital Signs Date Time Temp Pulse Resp B/P (MAP) Pulse Ox O2 Delivery O2 Flow Rate FiO2 10/10/24 08:10 97.9 84 18 130/66 98 Room Air 10/10/24 08:09 21 10/09/24 21:18 0 Medications Current Medications Morphine Sulfate 4 mg ONCE ONCE IVP Last administered on 10/07/24at 11:43; Start 10/07/24 at 11:30; Stop 10/07/24 at 11:32; Status DC Ondansetron HCl 4 mg ONCE ONCE IVP Last administered on 10/07/24at 11:43; Start 10/07/24 at 11:30; Stop 10/07/24 at 11:32; Status DC Levofloxacin/ Dextrose 100 ml @ 100 mls/hr Q24H IV; Start 10/07/24 at 12:30; Stop 10/07/24 at 12:24; Status DC Levofloxacin/ Dextrose 100 ml @ 100 mls/hr ONCE ONCE IV Last administered on 10/07/24at 14:04; Start 10/07/24 at 12:30; Stop 10/07/24 at 13:29; Status DC Levofloxacin/ Dextrose 50 ml @ 50 mls/hr Q24H IVPB; Start 10/08/24 at 12:30; Stop 10/07/24 at 15:19; Status DC Iohexol 75 ml STK-MED ONCE IV; Start 10/07/24 at 13:37; Stop 10/07/24 at 13:37; Status DC Sodium Chloride 1,000 ml @ 80 mls/hr [id number] IV Last administered on 10/08/24at 15:34; Start 10/07/24 at 15:30; Stop 10/08/24 at 18:28; Status DC Pantoprazole Sodium 40 mg Q24H IVP Last administered on 10/09/24at 17:49; Start 10/07/24 at 15:30; Stop 11/06/24 at 15:29 Acetaminophen 650 mg Q6H PRN PO Last administered on 10/08/24at 22:47; Start 10/07/24 at 15:30; Stop 11/06/24 at 15:29 Morphine Sulfate 2 mg Q4H PRN IVP; Start 10/07/24 at 15:30; Stop 10/14/24 at 15:29 Insulin Human Regular INSULIN SLIDING SCAL... ACHS SQ Last administered on 10/09/24at 21:21; Start 10/07/24 at 16:30; Stop 11/06/24 at 16:29 Dextrose 50 ml AD PRN IV; Start 10/07/24 at 15:30; Stop 11/06/24 at 15:29 Glucagon 1 mg AD PRN IM; Start 10/07/24 at 15:30; Stop 11/06/24 at 15:29 Ipratropium [place] 0.5 mg [id number] PRN IH; Start 10/07/24 at 15:30; Stop 11/06/24 at 15:29 Enoxaparin Sodium 30 mg DAILY SQ Last administered on 10/10/24at 10:56; Start 10/08/24 at 09:00; Stop 11/07/24 at 08:59 Magnesium Sulfate 50 ml @ 0 mls/hr PROTOCOL IV Last administered on 10/07/24at 23:40; Start 10/07/24 at 16:30; Stop 11/06/24 at 16:29 Metoprolol Tartrate 5 mg Q6H PRN IV; Start 10/07/24 at 18:00; Stop 11/06/24 at 17:59 Hydralazine HCl 5 mg Q6H PRN IV; Start 10/07/24 at 18:00; Stop 11/06/24 at 17:59 Levofloxacin/ Dextrose 100 ml @ 100 mls/hr ONCE ONCE IV; Start 10/07/24 at 19:00; Stop 10/07/24 at 18:42; Status DC Levofloxacin/ Dextrose 50 ml @ 50 mls/hr Q24H IVPB Last administered on 10/08/24at 15:34; Start 10/08/24 at 15:00; Stop 10/09/24 at 11:31; Status DC Lactated Ringer's 1,000 ml @ 80 mls/hr [id number] IV Last administered on 10/09/24at 07:43; Start 10/08/24 at 18:30; Stop 10/09/24 at 15:58; Status DC Warfarin Sodium 2 mg WARF PO; Start 10/09/24 at 16:00; Stop 10/09/24 at 11:50; Status DC Nitrofurantoin Macrocrystals 100 mg BID PO Last administered on 10/10/24at 10:56; Start 10/09/24 at 21:00; Stop 10/19/24 at 20:59 Warfarin Sodium 2 mg WARF PO Last administered on 10/09/24at 17:49; Start 10/09/24 at 18:00; Stop 10/16/24 at 17:59 JOHNNY BANKS Jr. October 10, 2024 11:31
[2024-10-10] MEDS ORDERED: NITR100C4 PO (11:41)
--- NOTE | 2024-10-10 11:42 | DS ---
Discharge Summary Hospital Course Summary: 78-year-old male with underlying history of atrial fibrillation maintained on chronic anticoagulation with Eliquis, history of pacemaker placement, hypertension, type 2 diabetes mellitus, hyperlipidemia, history of chronic abdominal ventral hernia being followed by Dr. Small with General surgery as outpatient who presented to the ER for further evaluation of significant pain involving the hernia site. 10/08/24 PATIENT IS LYING IN BED PATIENT DENIES ABDOMINAL PAIN PATIENT REPORTS HAVING FLATUS WAITING FOR SURGEON RECOMMENDATIONS. HE REMAINS NPO FOR NOW. 10/09/24 we will continue with conservative management waiting for Dr. Rey recommendations.We will continue to monitor INR given to patient has AFib Coumadin is placed on hold for any invasive procedures. Today INR 1.7. Surgery being considered potentially depending on INR. Topper Press Operator's following for clearance limited risk as per his note. 11:00 a.m. was seen by surgery no surgical intervention on this admission we will be started on a diet we will follow-up with Dr. Steinberg 1-2 weeks. Patient's INR 1.7 We will restart Coumadin. 10/10/24 the patient has been cleared by surgery tolerating diet. Having bowel movement passing gas. Patient we will follow-up with surgery Dr. Steinberg in 1- 2 weeks for elective surgery. Patient was followed by transfer controller's appreciate his input denies evaluation of cardiac standpoint and outpatient vertebral surgeries being plan. Okay to resume Coumadin if no plan for surgery. Patient is clinically stable for discharge. Belt Polisher(s): RUN DATE: 10/09/24 [facility] PAGE 1 RUN TIME: [phone] [address], [place] [address] Department of [employer] [facility] # [id number] Branch Coordinator: Lois Reno DO Specimen Report PATIENT: RAISSA NAVA ACCT: [id number] LOC: [facility] U: [id number] AGE/SX: 78/M ROOM: [facility] RE10/07/[address]: DAYO EDOUARD MD : 1945 BED: 1 DIS: STATUS: ADM IN TLOC: SPEC: [id number] ROGER: 10/07/24 STATUS: COMP REQ: [id number] RECD: 10/08/[address]: MARLYS CHRISTOPHER MD SOURCE: [facility] [place]: 10/08/[address]: WINNIE VIRK SPDESC: CLEAN CAT ORDERED: AERO ID & SENS ------ ------ Procedure Result Al Date-Time AEROBIC ID & SENSITIVITIES Final 10/09/24-07 [facility] COLONY DESCRIPTION: DAY 1: COLONY COUNT: >100,000 CFU/ML GRAM NEGATIVE RODS IDENTIFICATION AND SENSITIVITY TO FOLLOW ESCHERICHIA COLI E COLI M.I.C. RX --------- ---- AMPICILLIN >16 R AZTREONAM <=4 S CEFAZOLIN 4 I CEFTAZIDIME/AVIBACTAM <=8 S CEFTRIAXONE <=1 S CIPROFLOXACIN >2 R GENTAMICIN >8 R LEVOFLOXACIN >4 R NITROFURANTOIN <=32 S TOBRAMYCIN >8 R MEROPENEM <=1 S PIPERACILLIN/TAZOBACTAM <=8 S TRIMETHOPRIM/SUFLAMETHOXAZOLE >2/ R @ [facility] Test Performed at: [facility] [address], [place], [place] Medical Contract Preparer: William Abreu D.O. END OF REPORT Procedure(s): REASON: HERNIA ORDERING PHYSICIAN: MARLYS CHRISTOPHER MD PROCEDURE: ABD PEL W - CT ABDOMEN/PELVIS W/CONTRAST CT ABDOMEN/PELVIS W/CONTRAST HISTORY: Hernia COMPARISON: None TECHNIQUE: Multiple sequential axial images of the abdomen and pelvis were obtained from the dome of the diaphragm through symphysis pubis. Patient was not given contrast through intravenous route. Oral contrast was not given. FINDINGS: No pleural effusion is seen bilaterally. There is no evidence of parenchymal disease or pulmonary nodule of the visualized lower lungs. Degenerative changes of the thoracolumbar spine are present. The heart is not enlarged. Gallstones are seen in the gallbladder. There is small bowel dilatation with air fluid level with transitional point at the level of the ventral hernia with bowel content suspicious for bowel obstruction. There is diverticulosis. The liver, spleen, adrenal glands and pancreas are unremarkable. There is no evidence of hydronephrosis bilaterally. No evidence of renal stone is seen. There are bilateral renal cortical scarring. Fecal material is seen in the colon. There are normal size retroperitoneal and mesenteric lymph nodes. No ascites is seen. No CT evidence of acute appendicitis is seen. Pelvic sidewalls are symmetric bilaterally. Bladder is well distended without wall thickening. IMPRESSION: 1. Gallstones are seen in the gallbladder. There is small bowel dilatation with air fluid level with transitional point at the level of the ventral hernia with bowel content suspicious for bowel obstruction. There is diverticulosis. REASON: pre op dr zendejas to read ORDERING PHYSICIAN: UZMA LANE MD PROCEDURE: ECHO CMP - ECHO 2-D COMPLETE APPROVED REPORT EXAM: Two-dimensional and M-mode echocardiogram with Doppler and color Doppler. INDICATION ICD: Pre-Op 2D Dimensions RVDd 2.9 cm LVEF(%) 80.7 (>50%) LVED Vol(simp.) 75.0 mL IVSd 1.1 (0.7-1.1cm) FS(%) 49 % LVES Vol(simp.) 30.0 mL LVDd 4.4 (3.8-5.6cm) LA (2D) 4.9 (1.6-4.0cm) LVEF(%, simp.) 59 % PWd 1.0 (0.7-1.1cm) Ao Root(2D) 3.5 (2.0-3.7cm) LA ESV INDEX (BP) 50.22 mL/m2 IVSs 1.5 cm LVOT diam 2.4 (1.8-2.4cm) LVDs 2.2 (2.5-4.0cm) PWs 1.5 cm Deformation Strain Apical 4 -17.9 % Apical 2 -12.5 % Apical 3 -17.6 % Global Strain -16.0 % M-Mode Dimensions EPSS 0.8 cm LA (MM) 4.5 (1.6-4.0cm) Ao Root(MM) 3.5 (2.0-3.7cm) Aortic Valve AoV Vmax 0.8 m/s Ao Peak GR 2.8 mmHg LVOT Vmax 0.8 m/s AoV VTI 0.2 m Ao Mean GR 1.9 mmHg LVOT VTI 0.18 m LEV (VMAX) 4.80 cm2 Al P1/2T 581 ms LEV (VTI) 4.8 cm2 Mitral Valve MV E Vmax 112.2 cm/s DECEL Time 202 ms P 1/2 T 59 ms MVA (PHT) 3.8 cm2 TDI E/E' Medial 13.7 E/E' Lateral 15.5 Medial E' Peak V 8.18 cm/s Lateral E' Peak V 7.22 cm/s Pulmonary Valve PV Vmax 0.7 m/s PV VTI 0.13 m PV Mean GR 1.1 mmHg PV Peak GR 1.9 mmHg Tricuspid Valve TR Vmax 3.1 m/s RVSP 34.6 mmHg TR Peak GR 39.7 mmHg Left Ventricle The left ventricle is normal size. Normal wall motion There is normal left ventricular wall thickness. The LVEF is > 55%. Diastolic function was not assessed Right Ventricle The right ventricle is normal size. Right ventricular systolic function is moderately reduced. Atria The left atrium is severely dilated. LASVI 50mL/m�. The right atrium size is normal. Aortic Valve The aortic valve is normal in structure. Mild aortic regurgitation is present. There is no aortic valvular stenosis. Mitral Valve Mitral valve leaflets open well. There is mitral annular calcification. There is mild mitral valve regurgitation noted. There is no mitral valve stenosis. Tricuspid Valve The tricuspid valve is normal in structure. There is mild to moderate tricuspid valve regurgitation noted. Pulmonic Valve Not well seen There is no pulmonic valvular regurgitation. Great Vessels The aortic root is normal in size. The IVC is normal in size and collapses >50% with inspiration. Pericardium There is no pericardial effusion. Other Information Quality : Adequate Conclusion The LVEF is > 55%. Diastolic function was not assessed There is normal left ventricular wall thickness. The left ventricle is normal size. Normal wall motion Right ventricular systolic function is moderately reduced. The left atrium is severely dilated. LASVI 50mL/m�. There is mitral annular calcification. There is mild to moderate tricuspid valve regurgitation noted. There is no pericardial effusion. Normal pulmonary pressures Study quality was adequate DICTATED BY: PENELOPE LANE REASON: pamela ORDERING PHYSICIAN: PADMINI CASTRO NP PROCEDURE: RENAL - US RENAL SONOGRAM Exam Type: US RENAL SONOGRAM Clinical Information: pamela Comparison: None Findings: Examination shows normal renal size and echogenicity bilaterally. Preserved cortical thickness and corticomedullary junction region is seen. No hydronephrosis of either side. Right renal nonobstructing calculus, 4 mm. No renal masses are seen. There is no evidence of perinephric fluid on either side. No evidence of significant ureteral dilatation is seen. The right kidney measures 10.8 x 3.5 cm. The left kidney measures 10.3 x 4.2 cm. The urinary bladder is normal. No bladder masses, stones, or wall thickening is seen. IMPRESSION: Normal renal anatomy bilaterally. Nonobstructing right nephrolithiasis. REASON: sbo ORDERING PHYSICIAN: PADMINI CASTRO NP PROCEDURE: ABD 1VW - ABD 1VW Exam Type: ABD 1VW Clinical Information: sbo Comparison: None Findings: Multiple dilated small bowel loops are seen with air-fluid levels. This is consistent with small bowel obstruction. Follow-up is advised. Assessment/Plan: Discharged dx's; Incarcerated ventral abdominal hernia with acute small bowel obstruction, POA no surgical intervention on this admission Urinary tract infection, POA gram negative : Ecoli will be discharged on oral a bt's x6 days. Acute kidney injury, POA improved Coagulopathy with elevated PT INR, 2/2 warfarin use as outpatient, POA Mild hypercalcemia, POA Uncontrolled hyperglycemia, POA improved Severe hypomagnesemia, POA corrected Leukocytosis, POA resolved History of chronic abdominal hernia for the past two years, POA History of atrial fibrillation maintained on chronic anticoagulation with warfarin, POA History of pacemaker placement, POA Underlying history of type 2 diabetes mellitus, POA History of penicillin allergy, POA PLAN: ADMISSION DATE: 10/07/24 DISCHARGE DATE: 10/10/24 DISPOSITION: Home CONDITION: Stable PLASTIC INSTALLER(S): General surgeon Dr. Geovanny CASTREJON, transfer controller: Dr Shin Diane MD FOLLOW UP APPOINTMENT(S): PCP DR Bhavani Downs 2-3 days PROCEDURES: No surgical intervention on this admission: will follow up with DR Small 1-2 wk for elective surgery. IMAGING (S) report attached to summary : Echo, Renal US and Abd/pelvis CT MICROBIOLOGY: report attached to summary; urine cultures ACTIVITY: ab marti with Walker HOME MEDICATIONS remain the same: will continue with Coumadin CHANGES ON HOME MEDICATIONS; None NEW MEDICATIONS Nitrofurantoin 100 mg po bid for 6 days. TEACHING: side effects and adverse reaction of medication, will continue with abdominal binder as directed by surgery. Emergency instructions: The patient was instructed to present to the nearest Emergency Department or call 911 should their symptoms return or worsen. Home Medications: Reported Medications Ergocalciferol (Vitamin D2) (Vitamin D2) 1,250 Mcg ([id number] Unit) Capsule, 1250 MCG PO AD, CAP 10/08/24 Tamsulosin HCl (Flomax) 0.4 Mg Cap.er.24h, 1 CAP PO DAILYDINNER for 30 Days, #30 CAP 0 Refills 10/07/24 Pantoprazole Sodium (Pantoprazole Sodium) 40 Mg Tablet.dr, 1 TAB PO BID for 30 Days, #30 TAB 0 Refills 10/07/24 Dutasteride (Dutasteride) 0.5 Mg Capsule, 1 CAP PO DAILYDINNER for 30 Days, #30 CAP 0 Refills 10/07/24 Cetirizine HCl (Cetirizine HCl) 10 Mg Tab.chew, 1 TAB PO DAILY for allergy symptoms for 30 Days, #30 TAB 0 Refills 10/07/24 Atorvastatin Calcium (LIPITOR) 40 Mg Tablet, 1 TAB PO DAILY for 30 Days, #30 TAB 0 Refills 10/07/24 Hydrochlorothiazide (Hydrochlorothiazide) 25 Mg Tablet, 1 TAB PO DAILY for 30 Days, #30 TAB 0 Refills 10/07/24 Warfarin Sodium (Warfarin Sodium) 2 Mg Tablet, 1 TAB PO DAILY for 30 Days, #30 TAB 0 Refills 10/07/24 Ferrous Gluconate (Ferrous Gluconate) 324 Mg (38 Mg Iron) Tablet, 1 TAB PO BID for 30 Days, #90 TAB 0 Refills 10/07/24 Discontinued Reported Medications Ergocalciferol (Vitamin D2) (Vitamin D2) 1,250 Mcg (07140 Unit) Capsule, 1 CAP PO AD for 28 Days, #4 CAP 0 Refills 10/07/24 New Medications: Nitrofurantoin Monohyd/M-Cryst (Macrobid 100 mg Capsule) 100 Mg Capsule 100 MG PO BID for 6 Days, #12 CAP Continued Medications: Atorvastatin Calcium (Lipitor) 40 Mg Tablet 1 TAB PO DAILY for 30 Days, #30 TAB 0 Refills Cetirizine HCl (Cetirizine HCl) 10 Mg Tab.chew 1 TAB PO DAILY for allergy symptoms for 30 Days, #30 TAB 0 Refills Dutasteride (Dutasteride) 0.5 Mg Capsule 1 CAP PO DAILYDINNER for 30 Days, #30 CAP 0 Refills Ergocalciferol (Vitamin D2) (Vitamin D2) 1,250 Mcg (11891 Unit) Capsule 1250 MCG PO AD, CAP Ferrous Gluconate (Ferrous Gluconate) 324 Mg (38 Mg Iron) Tablet 1 TAB PO BID for 30 Days, #90 TAB 0 Refills Hydrochlorothiazide (Hydrochlorothiazide) 25 Mg Tablet 1 TAB PO DAILY for 30 Days, #30 TAB 0 Refills Pantoprazole Sodium (Pantoprazole Sodium) 40 Mg Tablet.dr 1 TAB PO BID for 30 Days, #30 TAB 0 Refills Tamsulosin HCl (Flomax) 0.4 Mg Cap.er.24h 1 CAP PO DAILYDINNER for 30 Days, #30 CAP 0 Refills Warfarin Sodium (Warfarin Sodium) 2 Mg Tablet 1 TAB PO DAILY for 30 Days, #30 TAB 0 Refills Time spent arranging discharge: 31-60 minutes ATTESTATION BY PHYSICIAN I have seen and examined the patient. I reviewed the documentation, medical decision making, and treatment plan as noted by the mid-level provider above. I agree with the findings and plan of care. JOAQUIN CRAIG MD, ELIZABETH NP October 10, 2024 11:42
--- NOTE | 2024-10-10 14:30 | NUR ---
nurse note patient was to be discharged, but STAT labs were ordered for this patient, contacted Christie Morrissey NP to confirm if labs needed, stated yes and to contact her with results
[2024-10-10 14:55] LABS: CREATININE 1.2 mg/dL (0.5-1.3); POTASSIUM 4.8 mmol/L (3.5-5.1)
[2024-10-10 15:00] LABS: ALBUMIN 2.6 g/dL (3.5-5.0); BILIRUBIN,TOTAL 0.9 mg/dL (0.2-1.0); MAGNESIUM 2.2 mg/dL (1.80-2.40); TOTAL PROTEIN, SERUM 6.3 g/dL (6.0-8.3)
--- NOTE | 2024-10-10 16:00 | NUR ---
patient cleared for discharge, labs reviewed by provider
--- NOTE | 2024-10-10 16:44 | NUR ---
discharge patient given printed discharge paperwork, educated patient and family regarding diet, activity, follow up visits, medications and signs and symptoms to report, answered pt questions, patient and family understood. patient refused medications at 4pm, to take at home. Addendum: 10/10/24 at 1646 by TORITO BERNAL RN RN patient scheduled appointment with Dr. Fitzaptrick's office for next week
--- NOTE | 2024-10-12 17:36 | NUR ---
Transitional Phone Call Attempted to call twice, left message [phone] and no return call.
== END 2024-10-10 17:00 | disposition home or self-care (01) | DRG 394 ==
LOC: EDH 10:10 → EDHIP 14:56 → 3CH 21:00
PROVIDERS: ADMIT Internal Medicine; ATTEND Internal Medicine
DX: K43.6 Other and unspecified ventral hernia with obstruction, without gangrene (principal); D68.9 Coagulation defect, unspecified; N17.9 Acute kidney failure, unspecified; N39.0 Urinary tract infection, site not specified; K56.609 Unspecified intestinal obstruction, unspecified as to partial versus complete obstruction; E11.65 Type 2 diabetes mellitus with hyperglycemia; E78.5 Hyperlipidemia, unspecified; E83.42 Hypomagnesemia; E83.52 Hypercalcemia; D64.9 Anemia, unspecified; I08.1 Rheumatic disorders of both mitral and tricuspid valves; I10 Essential (primary) hypertension; I48.91 Unspecified atrial fibrillation; K57.30 Diverticulosis of large intestine without perforation or abscess without bleeding; Z79.01 Long term (current) use of anticoagulants; Z88.0 Allergy status to penicillin; Z95.0 Presence of cardiac pacemaker; B96.20 Unspecified Escherichia coli [E. coli] as the cause of diseases classified elsewhere
CPT/HCPCS: 36415; 74018; 74177; 76770; 80048; 80053; 80076; 81001; 82306; 82948; 83615; 83735; 83970; 84145; 85025; 85610; 85651; 85730; 86140; 87086; 87186; 93005; 93306; 93356; 94664; 99285; G0378; J1650; J1815; J1956; J2270; J2405; J2470; J3475; J7030; Q9967